=== PATIENT | female | born 1940 | race Caucasian/White ===

== ENCOUNTER 2020-08-28 20:44 | Inpatient (IN) | payer MEDICARE, OTHER ==
[2020-08-28 21:23] LABS: #Monocytes 1.3 10x3/uL (0.0-1.1); #Neutrophils 12.1 10x3/uL (1.5-8.4); %Basophils 0.3 % (0.0-2.0); %Lymphocytes 5.8 % (18.0-47.0); %Monocytes 8.9 % (0.0-10.0); %Neutrophils 84.1 % (40.0-75.0); Hemoglobin 11.1 g/dL (12.0-15.5); Mean Corpuscular HGB CONC 32.6 g/dL (32.0-36.0); Mean Corpuscular Hemoglobin 26.6 pg (27.0-33.0); Mean Corpuscular Volume 81.5 fl (81.6-98.3); Mean Platelet Volume 9.4 fl (7.4-10.4); Platelet Count 233 10x3/uL (150-450); RBC Distribution Width 15.8 % (11.5-14.5); Red Blood Cell (RBC) Count 4.17 10x6/uL (3.90-5.03); White Blood Cell (WBC) Count 14.4 10x3/uL (3.5-10.5)
[2020-08-28 21:33] LABS: Bilirubin Neg (Negative); Blood, Urine 250 (Negative); Clarity Cloudy (Clear); Glucose, Urine (Dipstick) Normal (Negative); Ketone, Urine Negative (Negative); Leukocyte 500 (Negative); Nitrite Negative (Negative); Protein, Urine (Dipstick) 30 mg/dl (Neg-Trace); Urobilinogen Normal mg/dL (Less than 2)
[2020-08-28 21:39] LABS: ALT (SGPT) 15 U/L (8-55); AST (SGOT) 28 U/L (5-34); Albumin 3.5 g/dL (3.4-4.8); Alkaline Phosphatase 56 U/L (40-110); Anion Gap 15 mmol/L (10-20); BUN (Urea Nitrogen) 28 mg/dL (9.8-20.1); Bilirubin, Total 0.7 mg/dL (0.2-1.2); Calc. Creatinine Clearance 0 mL/min (70-130); Calcium 9.2 mg/dL (7.8-10.44); Carbon Dioxide 18 mmol/L (23-31); Chloride 104 mmol/L (98-107); Globulin 2.8 g/dL (2.4-3.5); Glucose 99 mg/dL (83-110); Lipase 7 U/L (8-78); Potassium 3.1 mmol/L (3.5-5.1); Protein, Total 6.3 g/dL (5.8-8.1); Sodium 134 mmol/L (136-145)
[2020-08-28] MEDS ORDERED: Cefepime 2 GM VIAL ONE (21:39)
[2020-08-28 21:53] LABS: WBC/HPF Greater Than 50 HPF (0-3)
[2020-08-28 21:54] LABS: Bacteria/HPF 3+ HPF (None Seen); Yeast-Budding 2+ HPF (None Seen); Yeast-Hyphae 1+ HPF (None Seen)
[2020-08-28 21:55] LABS: Mucous/LPF 1+ LPF (<2+)
[2020-08-28 22:29] LABS: SARS-CoV-2 NAA Rapid Test Not Detected (NotDetected)
[2020-08-28] MEDS ORDERED: Calcium Carbonate 500 MG ChewTAB PO PRN (23:12)
[2020-08-28] MEDS ORDERED: Guaifenesin DM 100-10/5 ML UDCUP PO PRN (23:12)
[2020-08-28] MEDS ORDERED: Senokot S 8.6-50 MG TAB PO PRN (23:12)
[2020-08-29 01:20] VITALS: BMI 23.2
[2020-08-29] MEDS ORDERED: Sodium Chloride 0.9% 1,000 ML IV SCH (02:00)
[2020-08-29] MEDS ORDERED: Potassium Chloride 20 MEQ TAB PO SCH (02:00)
[2020-08-29 06:16] LABS: Anion Gap 17 mmol/L (10-20); BUN (Urea Nitrogen) 24 mg/dL (9.8-20.1); Calc. Creatinine Clearance 36 mL/min (70-130); Calcium 9.3 mg/dL (7.8-10.44); Carbon Dioxide 15 mmol/L (23-31); Chloride 110 mmol/L (98-107); Glucose 77 mg/dL (83-110); Magnesium 1.5 mg/dL (1.6-2.6); Potassium 3.3 mmol/L (3.5-5.1); Sodium 139 mmol/L (136-145)
[2020-08-29] MEDS: Acetaminophen 325 MG TAB PO PRN ×3 (06:27→20:03)
[2020-08-29] MEDS: Levothyroxine Sodium 25 MCG TAB PO SCH (06:27)
[2020-08-29] MEDS ORDERED: Vancomycin 1 GM in Premix Bag 1 BAG IVPB SCH (09:00)
[2020-08-29] MEDS: Famotidine 20 MG TAB PO SCH (09:18)
[2020-08-29] MEDS: Liothyronine Sodium 5 MCG TAB PO SCH (09:18)
[2020-08-29] MEDS: Magnesium Oxide 400 MG TAB PO SCH ×2 (09:19→20:03)
[2020-08-29] MEDS: Metamucil PACK PO SCH (09:19)
[2020-08-29] MEDS: Clopidogrel Bisulfate 75 MG TAB PO SCH (09:19)
[2020-08-29] MEDS: Gabapentin 300 MG CAP PO SCH ×2 (09:19→20:04)
[2020-08-29] MEDS: Cholecalciferol 1,000 UNITS (25 MCG) TAB PO SCH (09:19)
[2020-08-29] MEDS: Escitalopram Oxalate 10 mg Tablet PO SCH (09:20)
[2020-08-29] MEDS: Lactinex Tablet PO SCH (09:20)
[2020-08-29] MEDS: Enoxaparin Sodium 30 MG/0.3 ML SYRINGE SC SCH (09:20)
[2020-08-29] MEDS: Artificial Tear Sol 15 ML BOT EA EYE SCH ×2 (09:34→20:02)
[2020-08-29] MEDS: Stress 600 With Zinc 1 TAB PO SCH (09:45)
[2020-08-29 11:20] LABS: #Monocytes 1.1 10x3/uL (0.0-1.1); #Neutrophils 12.5 10x3/uL (1.5-8.4); %Basophils 0.2 % (0.0-2.0); %Eosinophils 0.1 % (0.0-6.0); %Lymphocytes 5.6 % (18.0-47.0); %Monocytes 7.3 % (0.0-10.0); %Neutrophils 85.9 % (40.0-75.0); Hemoglobin 10.4 g/dL (12.0-15.5); Mean Corpuscular HGB CONC 32.3 g/dL (32.0-36.0); Mean Corpuscular Hemoglobin 26.5 pg (27.0-33.0); Mean Corpuscular Volume 82.1 fl (81.6-98.3); Platelet Count 190 10x3/uL (150-450); RBC Distribution Width 15.8 % (11.5-14.5); Red Blood Cell (RBC) Count 3.92 10x6/uL (3.90-5.03); White Blood Cell (WBC) Count 14.6 10x3/uL (3.5-10.5)
[2020-08-29] MEDS: Micafungin 100 MG in Sodium Chloride 0.9% 100 ML IVPB SCH (15:00)
[2020-08-29] MEDS ORDERED: Diphenoxylate HCl/Atropine Tablet PO SCH (17:15)
[2020-08-29] MEDS: Cefepime 1 GM in Sodium Chloride 0.9% 100 ML IVPB SCH (20:01)
[2020-08-29] MEDS: Fenofibrate 48 MG TAB PO SCH (20:02)
[2020-08-29] MEDS: Atorvastatin Calcium 40 MG TAB PO SCH (20:02)
[2020-08-29] MEDS: Ondansetron PF 4 MG/2 ML Vial IVP PRN (20:18)
[2020-08-29] MEDS: Vancomycin HCl 750 MG in Sodium Chloride 0.9% 250 ML 250 ML IVPB SCH (23:13)
[2020-08-30] MEDS: Acetaminophen 325 MG TAB PO PRN ×2 (01:01→05:00)
[2020-08-30] MEDS: Levothyroxine Sodium 25 MCG TAB PO SCH (05:00)
[2020-08-30] MEDS: Magnesium Oxide 400 MG TAB PO SCH ×2 (09:00→22:40)
[2020-08-30] MEDS: Artificial Tear Sol 15 ML BOT EA EYE SCH ×2 (09:00→22:48)
[2020-08-30] MEDS: Gabapentin 300 MG CAP PO SCH ×2 (09:00→22:40)
[2020-08-30] MEDS: Liothyronine Sodium 5 MCG TAB PO SCH (09:00)
[2020-08-30] MEDS: Cholecalciferol 1,000 UNITS (25 MCG) TAB PO SCH (09:00)
[2020-08-30] MEDS: Metamucil PACK PO SCH (09:00)
[2020-08-30] MEDS: Lactinex Tablet PO SCH (09:00)
[2020-08-30] MEDS: Stress 600 With Zinc 1 TAB PO SCH (09:00)
[2020-08-30] MEDS: Clopidogrel Bisulfate 75 MG TAB PO SCH (09:00)
[2020-08-30] MEDS: Enoxaparin Sodium 30 MG/0.3 ML SYRINGE SC SCH (09:00)
[2020-08-30] MEDS: Famotidine 20 MG TAB PO SCH (09:00)
[2020-08-30] MEDS: Escitalopram Oxalate 10 mg Tablet PO SCH (09:00)
[2020-08-30] MEDS: Micafungin 100 MG in Sodium Chloride 0.9% 100 ML IVPB SCH (14:58)
[2020-08-30] MEDS: Diphenoxylate HCl/Atropine Tablet PO PRN (17:30)
[2020-08-30] MEDS: Atorvastatin Calcium 40 MG TAB PO SCH (22:41)
[2020-08-30] MEDS: Fenofibrate 48 MG TAB PO SCH (22:41)
[2020-08-30] MEDS: Cefepime 1 GM in Sodium Chloride 0.9% 100 ML IVPB SCH (22:49)
[2020-08-30] MEDS: Ondansetron PF 4 MG/2 ML Vial IVP PRN (22:59)
[2020-08-30 23:07] LABS: Vancomycin, Trough 8.3 ug/mL
[2020-08-30] MEDS: Vancomycin HCl 750 MG in Sodium Chloride 0.9% 250 ML 250 ML IVPB SCH (23:57)
[2020-08-31] MEDS: Atorvastatin Calcium 40 MG TAB PO SCH ×2 (01:34→20:44)
[2020-08-31] MEDS: Fenofibrate 48 MG TAB PO SCH ×2 (01:34→20:43)
[2020-08-31] MEDS: Magnesium Oxide 400 MG TAB PO SCH ×3 (01:34→20:43)
[2020-08-31] MEDS ORDERED: Melatonin 3 MG TAB PO SCH (01:45)
[2020-08-31 04:36] LABS: Hemoglobin 8.9 g/dL (12.0-15.5); Mean Corpuscular HGB CONC 32.5 g/dL (32.0-36.0); Mean Corpuscular Hemoglobin 26.6 pg (27.0-33.0); Platelet Count 178 10x3/uL (150-450); Red Blood Cell (RBC) Count 3.34 10x6/uL (3.90-5.03); White Blood Cell (WBC) Count 7.2 10x3/uL (3.5-10.5)
[2020-08-31 04:49] LABS: Anion Gap 14 mmol/L (10-20); BUN (Urea Nitrogen) 16 mg/dL (9.8-20.1); Calc. Creatinine Clearance 51 mL/min (70-130); Calcium 9.1 mg/dL (7.8-10.44); Carbon Dioxide 16 mmol/L (23-31); Chloride 115 mmol/L (98-107); Glucose 86 mg/dL (83-110); Sodium 142 mmol/L (136-145)
[2020-08-31 05:00] LABS: Potassium 2.6 mmol/L (3.5-5.1)
[2020-08-31] MEDS: Gabapentin 300 MG CAP PO SCH ×3 (06:02→20:43)
[2020-08-31] MEDS: Levothyroxine Sodium 25 MCG TAB PO SCH (06:02)
[2020-08-31] MEDS: Potassium Chloride 20 MEQ TAB PO SCH ×2 (06:03→09:05)
[2020-08-31 06:59] LABS: Band 12 % (5-11); Eosinophils 1 % (0-10)
[2020-08-31 07:00] LABS: Monocytes 5 % (0-10); Reactive Lymphocytes 3 % (0-10)
[2020-08-31 07:02] LABS: Anisocytosis SLIGHT = 6-15 cells (100X) (0-5/hpf); Burr Cells SLIGHT = 2-5 cells (100X) (0-1/hpf); Lymphocytes 5 % (21-51); Microcytosis MODERATE=15-30 cells (100X) (0-5/hpf); Ovalocytes SLIGHT = 2-5 cells (100X) (0-1/hpf)
[2020-08-31 07:03] LABS: Dohle Bodies SLIGHT; Toxic Granulation SLIGHT
[2020-08-31 07:04] LABS: MDiff Complete? YES; Manual Diff?? YES; Platelet Morphology Comment Appears Adequate
[2020-08-31 07:05] LABS: Neutrophil 73 % (42-75)
[2020-08-31] MEDS ORDERED: Enoxaparin Sodium 30 MG/0.3 ML SYRINGE ONE ×2 (08:56)
[2020-08-31] MEDS: Metamucil PACK PO SCH (09:05)
[2020-08-31] MEDS: Famotidine 20 MG TAB PO SCH (09:05)
[2020-08-31] MEDS: Clopidogrel Bisulfate 75 MG TAB PO SCH (09:05)
[2020-08-31] MEDS: Enoxaparin Sodium 30 MG/0.3 ML SYRINGE SC SCH (09:05)
[2020-08-31] MEDS: Cholecalciferol 1,000 UNITS (25 MCG) TAB PO SCH (09:05)
[2020-08-31] MEDS: Liothyronine Sodium 5 MCG TAB PO SCH (09:06)
[2020-08-31] MEDS: Escitalopram Oxalate 10 mg Tablet PO SCH (09:06)
[2020-08-31] MEDS: Lactinex Tablet PO SCH (09:06)
[2020-08-31] MEDS: Ondansetron PF 4 MG/2 ML Vial IVP PRN ×2 (09:06→17:35)
[2020-08-31] MEDS: Stress 600 With Zinc 1 TAB PO SCH (09:08)
[2020-08-31] MEDS: Artificial Tear Sol 15 ML BOT EA EYE SCH ×2 (09:08→22:33)
[2020-08-31] MEDS: Diphenoxylate HCl/Atropine Tablet PO PRN (12:13)
[2020-08-31] MEDS: Micafungin 100 MG in Sodium Chloride 0.9% 100 ML IVPB SCH (14:30)
[2020-08-31] MEDS: Acetaminophen 325 MG TAB PO PRN (17:23)
[2020-08-31] MEDS: Lidocaine Viscous Sol 2% 15 ml UD Cup SSP SCH (20:44)
[2020-08-31] MEDS ORDERED: Vancomycin HCl 1 GM in Sodium Chloride 0.9% 250 ML 250 ML IVPB SCH (22:00)
[2020-08-31] MEDS ORDERED: Vancomycin 1 GM in Premix Bag 1 BAG IVPB SCH (22:00)
[2020-09-01] MEDS: Diphenoxylate HCl/Atropine Tablet PO PRN ×2 (02:45→21:22)
[2020-09-01] MEDS: Ondansetron PF 4 MG/2 ML Vial IVP PRN ×3 (02:45→18:14)
[2020-09-01 04:42] LABS: #Eosinphils 0.1 10x3/uL (0.0-0.5); #Monocytes 0.9 10x3/uL (0.0-1.1); #Neutrophils 7.4 10x3/uL (1.5-8.4); %Basophils 0.2 % (0.0-2.0); %Eosinophils 1.5 % (0.0-6.0); %Lymphocytes 8.7 % (18.0-47.0); %Monocytes 9.8 % (0.0-10.0); %Neutrophils 78.5 % (40.0-75.0); Hemoglobin 9.4 g/dL (12.0-15.5); Mean Corpuscular HGB CONC 33.2 g/dL (32.0-36.0); Mean Corpuscular Hemoglobin 26.3 pg (27.0-33.0); Mean Corpuscular Volume 79.3 fl (81.6-98.3); Platelet Count 165 10x3/uL (150-450); Red Blood Cell (RBC) Count 3.57 10x6/uL (3.90-5.03); White Blood Cell (WBC) Count 9.4 10x3/uL (3.5-10.5)
[2020-09-01 04:44] LABS: Anion Gap 19 mmol/L (10-20); BUN (Urea Nitrogen) 13 mg/dL (9.8-20.1); Calc. Creatinine Clearance 58 mL/min (70-130); Calcium 9.5 mg/dL (7.8-10.44); Carbon Dioxide 12 mmol/L (23-31); Chloride 116 mmol/L (98-107); Glucose 84 mg/dL (83-110); Potassium 3.5 mmol/L (3.5-5.1); Sodium 143 mmol/L (136-145)
[2020-09-01] MEDS: Levothyroxine Sodium 25 MCG TAB PO SCH (06:12)
[2020-09-01] MEDS: Gabapentin 300 MG CAP PO SCH ×2 (08:33→21:23)
[2020-09-01] MEDS: Lactinex Tablet PO SCH (08:33)
[2020-09-01] MEDS: Clopidogrel Bisulfate 75 MG TAB PO SCH (08:33)
[2020-09-01] MEDS: Lidocaine Viscous Sol 2% 15 ml UD Cup SSP SCH ×3 (08:33→21:54)
[2020-09-01] MEDS: Cholecalciferol 1,000 UNITS (25 MCG) TAB PO SCH (08:33)
[2020-09-01] MEDS: Magnesium Oxide 400 MG TAB PO SCH ×2 (08:33→21:23)
[2020-09-01] MEDS: Escitalopram Oxalate 10 mg Tablet PO SCH (08:33)
[2020-09-01] MEDS: Famotidine 20 MG TAB PO SCH (08:33)
[2020-09-01] MEDS: Liothyronine Sodium 5 MCG TAB PO SCH (08:33)
[2020-09-01] MEDS: Artificial Tear Sol 15 ML BOT EA EYE SCH ×2 (08:34→21:58)
[2020-09-01] MEDS: Enoxaparin Sodium 30 MG/0.3 ML SYRINGE SC SCH (08:34)
[2020-09-01] MEDS: Metamucil PACK PO SCH (08:34)
[2020-09-01] MEDS: Stress 600 With Zinc 1 TAB PO SCH (08:34)
[2020-09-01] MEDS: Micafungin 100 MG in Sodium Chloride 0.9% 100 ML IVPB SCH (15:23)
[2020-09-01] MEDS ORDERED: Haloperidol Lactate 5 MG/ML VIAL SLOW IVP PRN (17:56)
[2020-09-01] MEDS: Atorvastatin Calcium 40 MG TAB PO SCH (21:22)
[2020-09-01] MEDS: Fenofibrate 48 MG TAB PO SCH (21:23)
[2020-09-01] MEDS: Linezolid 600 MG TAB PO SCH (21:23)
[2020-09-01 22:01] LABS: Vancomycin, Trough 9.5 ug/mL
[2020-09-02] MEDS: Levothyroxine Sodium 25 MCG TAB PO SCH (05:02)
[2020-09-02 05:27] LABS: #Eosinphils 0.2 10x3/uL (0.0-0.5); #Monocytes 0.8 10x3/uL (0.0-1.1); #Neutrophils 4.9 10x3/uL (1.5-8.4); %Basophils 0.3 % (0.0-2.0); %Eosinophils 3.1 % (0.0-6.0); %Lymphocytes 15.7 % (18.0-47.0); %Neutrophils 69.5 % (40.0-75.0); Hemoglobin 9.8 g/dL (12.0-15.5); Mean Corpuscular HGB CONC 33.3 g/dL (32.0-36.0); Mean Corpuscular Hemoglobin 26.6 pg (27.0-33.0); Mean Corpuscular Volume 79.7 fl (81.6-98.3); Mean Platelet Volume 9.6 fl (7.4-10.4); Platelet Count 230 10x3/uL (150-450); RBC Distribution Width 15.7 % (11.5-14.5); Red Blood Cell (RBC) Count 3.69 10x6/uL (3.90-5.03)
[2020-09-02 05:41] LABS: Anion Gap 14 mmol/L (10-20); BUN (Urea Nitrogen) 10 mg/dL (9.8-20.1); Calc. Creatinine Clearance 66 mL/min (70-130); Carbon Dioxide 20 mmol/L (23-31); Chloride 109 mmol/L (98-107); Glucose 80 mg/dL (83-110); Sodium 140 mmol/L (136-145)
[2020-09-02 05:52] LABS: Potassium 2.7 mmol/L (3.5-5.1)
[2020-09-02] MEDS ORDERED: Potassium Chloride 20 MEQ TAB PO SCH ×3 (06:15→17:00)
[2020-09-02] MEDS: Famotidine 20 MG TAB PO SCH (08:14)
[2020-09-02] MEDS: Gabapentin 300 MG CAP PO SCH ×2 (08:14→20:21)
[2020-09-02] MEDS: Magnesium Oxide 400 MG TAB PO SCH (08:14)
[2020-09-02] MEDS: Cholecalciferol 1,000 UNITS (25 MCG) TAB PO SCH (08:14)
[2020-09-02] MEDS: Ondansetron PF 4 MG/2 ML Vial IVP PRN ×2 (08:14→17:02)
[2020-09-02] MEDS: Lactinex Tablet PO SCH (08:15)
[2020-09-02] MEDS: Clopidogrel Bisulfate 75 MG TAB PO SCH (08:15)
[2020-09-02] MEDS: Liothyronine Sodium 5 MCG TAB PO SCH (08:15)
[2020-09-02] MEDS: Enoxaparin Sodium 30 MG/0.3 ML SYRINGE SC SCH (08:15)
[2020-09-02] MEDS: Lidocaine Viscous Sol 2% 15 ml UD Cup SSP SCH ×2 (08:59→20:23)
[2020-09-02] MEDS: Stress 600 With Zinc 1 TAB PO SCH (08:59)
[2020-09-02] MEDS: Artificial Tear Sol 15 ML BOT EA EYE SCH ×2 (08:59→20:20)
[2020-09-02] MEDS: Metamucil PACK PO SCH (08:59)
[2020-09-02] MEDS: Linezolid 600 MG TAB PO SCH ×2 (09:13→20:22)
[2020-09-02] MEDS: Diphenoxylate HCl/Atropine Tablet PO PRN ×2 (13:28→20:22)
[2020-09-02] MEDS ORDERED: Magnesium Oxide 400 MG TAB PO SCH (13:30)
[2020-09-02 14:29] LABS: Potassium 3.2 mmol/L (3.5-5.1)
[2020-09-02] MEDS ORDERED: Fenofibrate 48 MG TAB ONE (19:56)
[2020-09-02] MEDS: Fenofibrate 48 MG TAB PO SCH (20:21)
[2020-09-02] MEDS: Atorvastatin Calcium 40 MG TAB PO SCH (20:21)
[2020-09-03] MEDS: Levothyroxine Sodium 25 MCG TAB PO SCH (05:07)
[2020-09-03 05:08] LABS: #Eosinphils 0.2 10x3/uL (0.0-0.5); #Monocytes 0.9 10x3/uL (0.0-1.1); #Neutrophils 4.1 10x3/uL (1.5-8.4); %Basophils 0.5 % (0.0-2.0); %Eosinophils 3.7 % (0.0-6.0); %Lymphocytes 17.9 % (18.0-47.0); %Monocytes 13.7 % (0.0-10.0); %Neutrophils 63.3 % (40.0-75.0); Hemoglobin 9.9 g/dL (12.0-15.5); Mean Corpuscular HGB CONC 32.6 g/dL (32.0-36.0); Mean Corpuscular Hemoglobin 26.4 pg (27.0-33.0); Mean Corpuscular Volume 81.1 fl (81.6-98.3); Mean Platelet Volume 9.4 fl (7.4-10.4); Platelet Count 275 10x3/uL (150-450); RBC Distribution Width 15.6 % (11.5-14.5); Red Blood Cell (RBC) Count 3.75 10x6/uL (3.90-5.03); White Blood Cell (WBC) Count 6.5 10x3/uL (3.5-10.5)
[2020-09-03 05:29] LABS: Anion Gap 13 mmol/L (10-20); BUN (Urea Nitrogen) 11 mg/dL (9.8-20.1); Calc. Creatinine Clearance 56 mL/min (70-130); Calcium 8.6 mg/dL (7.8-10.44); Carbon Dioxide 19 mmol/L (23-31); Chloride 111 mmol/L (98-107); Glucose 85 mg/dL (83-110); Magnesium 1.4 mg/dL (1.6-2.6); Phosphorus 2.7 mg/dL (2.3-4.7); Potassium 3.4 mmol/L (3.5-5.1); Sodium 140 mmol/L (136-145)
[2020-09-03] MEDS: Cholecalciferol 1,000 UNITS (25 MCG) TAB PO SCH (08:52)
[2020-09-03] MEDS: Liothyronine Sodium 5 MCG TAB PO SCH (08:52)
[2020-09-03] MEDS: Clopidogrel Bisulfate 75 MG TAB PO SCH (08:53)
[2020-09-03] MEDS: Lactinex Tablet PO SCH (08:53)
[2020-09-03] MEDS: Gabapentin 300 MG CAP PO SCH (08:53)
[2020-09-03] MEDS: Famotidine 20 MG TAB PO SCH (08:53)
[2020-09-03] MEDS: Lidocaine Viscous Sol 2% 15 ml UD Cup SSP SCH (08:54)
[2020-09-03] MEDS: Linezolid 600 MG TAB PO SCH (08:54)
[2020-09-03] MEDS: Artificial Tear Sol 15 ML BOT EA EYE SCH (08:54)
[2020-09-03] MEDS: Enoxaparin Sodium 30 MG/0.3 ML SYRINGE SC SCH (08:54)
[2020-09-03] MEDS ORDERED: Magnesium 2 GM/50 ML 2 GM in Premix Bag 1 BAG IVPB SCH (09:00)
[2020-09-03] MEDS ORDERED: Potassium Chloride 20 MEQ TAB PO SCH (09:00)
[2020-09-03] MEDS ORDERED: Magnesium Oxide 400 MG TAB PO SCH (09:00)
[2020-09-03] MEDS: Stress 600 With Zinc 1 TAB PO SCH (09:12)
[2020-09-03] MEDS: Metamucil PACK PO SCH (09:12)
[2020-09-03 12:04] VITALS: BP 113/58; TEMP 98.3
== END 2020-09-03 14:00 | DRG 698 ==
LOC: CSHERS 20:44 → CSHTELE 23:12
PROVIDERS: ADMIT Student in an Organized Health Care Education/Training Program; ATTEND Family Medicine
DX: T83.518A Infection and inflammatory reaction due to other urinary catheter, initial encounter (principal); A41.9 Sepsis, unspecified organism; N17.9 Acute kidney failure, unspecified; I51.81 Takotsubo syndrome; N13.6 Pyonephrosis; E03.9 Hypothyroidism, unspecified; Z20.822 Contact with and (suspected) exposure to COVID-19; E78.5 Hyperlipidemia, unspecified; I25.10 Atherosclerotic heart disease of native coronary artery without angina pectoris; K21.9 Gastro-esophageal reflux disease without esophagitis; F03.90 Unspecified dementia, unspecified severity, without behavioral disturbance, psychotic disturbance, mood disturbance, and anxiety; M81.0 Age-related osteoporosis without current pathological fracture; Z96.643 Presence of artificial hip joint, bilateral; Z96.653 Presence of artificial knee joint, bilateral; Z90.710 Acquired absence of both cervix and uterus; Z95.0 Presence of cardiac pacemaker; Z96.612 Presence of left artificial shoulder joint; Z96.611 Presence of right artificial shoulder joint; E87.6 Hypokalemia; I12.9 Hypertensive chronic kidney disease with stage 1 through stage 4 chronic kidney disease, or unspecified chronic kidney disease; N18.2 Chronic kidney disease, stage 2 (mild); J44.9 Chronic obstructive pulmonary disease, unspecified; Z86.16 Personal history of COVID-19; D63.1 Anemia in chronic kidney disease; I25.2 Old myocardial infarction; K58.0 Irritable bowel syndrome with diarrhea; E83.42 Hypomagnesemia; I49.5 Sick sinus syndrome; M54.10 Radiculopathy, site unspecified
CPT/HCPCS: 0240U; 36415; 71045; 74177; 80048; 80053; 80202; 81003; 81015; 82565; 83605; 83690; 83735; 84100; 84520; 85025; 87040; 87077; 87086; 87149; 87186; 93005; 94760; 96365; 96367; J0692; J1630; J1650; J2248; J2405; J3370; J3475; J3490; J7050

== ENCOUNTER 2020-09-09 20:10 | Inpatient (IN) | payer MEDICARE ==
[2020-09-09 20:38] LABS: Bilirubin Neg (Negative); Blood, Urine 50 (Negative); Clarity Slightly Cloudy (Clear); Glucose, Urine (Dipstick) Normal (Negative); Ketone, Urine Negative (Negative); Leukocyte 500 (Negative); Nitrite Positive (Negative); Protein, Urine (Dipstick) 15 mg/dl (Neg-Trace); Urobilinogen Normal mg/dL (Less than 2)
[2020-09-09 20:49] LABS: Bacteria/HPF 2+ HPF (None Seen); Squamous Epithelial 0-3 HPF (0-3); WBC/HPF Greater Than 50 HPF (0-3)
[2020-09-09 20:50] LABS: Renal Epithelial 0-3 HPF (None Seen)
[2020-09-09 21:07] LABS: #Basophils 0.1 10x3/uL (0.0-0.2); #Monocytes 1.5 10x3/uL (0.0-1.1); #Neutrophils 15.7 10x3/uL (1.5-8.4); %Basophils 0.3 % (0.0-2.0); %Eosinophils 0.1 % (0.0-6.0); %Lymphocytes 4.8 % (18.0-47.0); %Monocytes 8.2 % (0.0-10.0); %Neutrophils 85.9 % (40.0-75.0); Hemoglobin 10.2 g/dL (12.0-15.5); Mean Corpuscular HGB CONC 32.2 g/dL (32.0-36.0); Mean Corpuscular Hemoglobin 26.3 pg (27.0-33.0); Mean Corpuscular Volume 81.7 fl (81.6-98.3); Mean Platelet Volume 8.5 fl (7.4-10.4); Red Blood Cell (RBC) Count 3.88 10x6/uL (3.90-5.03); White Blood Cell (WBC) Count 18.3 10x3/uL (3.5-10.5)
[2020-09-09 21:10] LABS: Platelet Count 479 10x3/uL (150-450)
[2020-09-09 21:23] LABS: ALT (SGPT) 11 U/L (8-55); AST (SGOT) 21 U/L (5-34); Albumin 3.4 g/dL (3.4-4.8); Alkaline Phosphatase 59 U/L (40-110); Anion Gap 16 mmol/L (10-20); BUN (Urea Nitrogen) 17 mg/dL (9.8-20.1); Bilirubin, Total 0.5 mg/dL (0.2-1.2); Calc. Creatinine Clearance 0 mL/min (70-130); Calcium 9.1 mg/dL (7.8-10.44); Carbon Dioxide 21 mmol/L (23-31); Chloride 101 mmol/L (98-107); Globulin 3.1 g/dL (2.4-3.5); Glucose 114 mg/dL (83-110); Lipase 40 U/L (8-78); Potassium 3.6 mmol/L (3.5-5.1); Protein, Total 6.5 g/dL (5.8-8.1); Sodium 134 mmol/L (136-145)
[2020-09-09] MEDS ORDERED: Acetaminophen 500 MG TAB ONE (21:29)
[2020-09-09] MEDS ORDERED: Calcium Carbonate 500 MG ChewTAB PO PRN (21:47)
[2020-09-09] MEDS ORDERED: Benzonatate 100 MG CAP PO PRN (21:50)
[2020-09-10 01:47] LABS: SARS-CoV-2 NAA Rapid Test Not Detected (NotDetected)
[2020-09-10] MEDS ORDERED: Sodium Chloride 0.9% 1,000 ML IV SCH (03:00)
[2020-09-10] MEDS: Acetaminophen 325 MG TAB PO PRN ×2 (05:00→20:44)
[2020-09-10] MEDS: Cefepime 1 GM in Sodium Chloride 0.9% 100 ML IVPB SCH ×2 (05:00→16:50)
[2020-09-10] MEDS ORDERED: Cefepime 1 GM VIAL ONE (05:13)
[2020-09-10] MEDS ORDERED: Acetaminophen 325 MG TAB ONE (05:14)
[2020-09-10] MEDS: Levothyroxine Sodium 25 MCG TAB PO SCH (06:01)
[2020-09-10 06:52] LABS: #Monocytes 1.6 10x3/uL (0.0-1.1); #Neutrophils 16.4 10x3/uL (1.5-8.4); %Basophils 0.2 % (0.0-2.0); %Eosinophils 0.1 % (0.0-6.0); %Lymphocytes 3.7 % (18.0-47.0); %Monocytes 8.2 % (0.0-10.0); Hemoglobin 8.5 g/dL (12.0-15.5); Mean Corpuscular HGB CONC 31.5 g/dL (32.0-36.0); Mean Corpuscular Hemoglobin 26.5 pg (27.0-33.0); Mean Corpuscular Volume 84.1 fl (81.6-98.3); Mean Platelet Volume 8.8 fl (7.4-10.4); Platelet Count 350 10x3/uL (150-450); Red Blood Cell (RBC) Count 3.21 10x6/uL (3.90-5.03); White Blood Cell (WBC) Count 18.8 10x3/uL (3.5-10.5)
[2020-09-10 07:16] LABS: ALT (SGPT) 12 U/L (8-55); AST (SGOT) 14 U/L (5-34); Albumin 2.7 g/dL (3.4-4.8); Alkaline Phosphatase 45 U/L (40-110); Anion Gap 13 mmol/L (10-20); BUN (Urea Nitrogen) 15 mg/dL (9.8-20.1); Bilirubin, Total 0.6 mg/dL (0.2-1.2); Calc. Creatinine Clearance 0 mL/min (70-130); Calcium 8.1 mg/dL (7.8-10.44); Carbon Dioxide 19 mmol/L (23-31); Chloride 109 mmol/L (98-107); Globulin 2.5 g/dL (2.4-3.5); Glucose 99 mg/dL (83-110); Potassium 3.2 mmol/L (3.5-5.1); Protein, Total 5.2 g/dL (5.8-8.1); Sodium 138 mmol/L (136-145)
[2020-09-10] MEDS ORDERED: Potassium Chloride 20 MEQ TAB PO SCH (08:15)
[2020-09-10] MEDS: Cholecalciferol 1,000 UNITS (25 MCG) TAB PO SCH (09:00)
[2020-09-10] MEDS ORDERED: Enoxaparin Sodium 40 MG/0.4 ML SYRINGE ONE (09:03)
[2020-09-10] MEDS ORDERED: Clopidogrel Bisulfate 75 MG TAB ONE (09:03)
[2020-09-10] MEDS ORDERED: Famotidine 20 MG TAB ONE (09:05)
[2020-09-10] MEDS: Clopidogrel Bisulfate 75 MG TAB PO SCH (09:39)
[2020-09-10] MEDS: Stress 600 With Zinc 1 TAB PO SCH (09:40)
[2020-09-10] MEDS: Liothyronine Sodium 5 MCG TAB PO SCH (09:40)
[2020-09-10] MEDS: Saccharomyces boulardii 250 MG CAP PO SCH (09:40)
[2020-09-10] MEDS: Polyvinyl Alcohol 1.4%/Povidone 0.6% Opth Drops EA EYE SCH ×2 (09:40→23:11)
[2020-09-10] MEDS: Metamucil PACK PO SCH (09:40)
[2020-09-10] MEDS: Enoxaparin Sodium 40 MG/0.4 ML SYRINGE SC SCH (09:42)
[2020-09-10] MEDS: Famotidine 20 MG TAB PO SCH ×2 (09:42→20:43)
[2020-09-10] MEDS ORDERED: Diphenoxylate HCl/Atropine Tablet ONE (09:49)
[2020-09-10] MEDS ORDERED: Potassium Chloride 20 MEQ TAB ONE (09:50)
[2020-09-10] MEDS: Diphenoxylate HCl/Atropine Tablet PO PRN (10:06)
[2020-09-10 12:18] LABS: Anion Gap 13 mmol/L (10-20); BUN (Urea Nitrogen) 15 mg/dL (9.8-20.1); Calc. Creatinine Clearance 0 mL/min (70-130); Calcium 8.2 mg/dL (7.8-10.44); Carbon Dioxide 20 mmol/L (23-31); Chloride 109 mmol/L (98-107); Glucose 155 mg/dL (83-110); Magnesium 1.2 mg/dL (1.6-2.6); Potassium 3.2 mmol/L (3.5-5.1); Sodium 139 mmol/L (136-145)
[2020-09-10] MEDS ORDERED: Magnesium 2 GM/50 ML 2 GM in Premix Bag 1 BAG IVPB SCH (13:30)
[2020-09-10 13:49] VITALS: BMI 22.1
[2020-09-10] MEDS: Potassium Bicarbonate/Cit Ac 20 MEQ TAB PO SCH ×2 (16:50→20:44)
[2020-09-10] MEDS: Ondansetron PF 4 MG/2 ML Vial IVP PRN (16:51)
[2020-09-10] MEDS: Fenofibrate 48 MG TAB PO SCH (20:43)
[2020-09-10] MEDS: Atorvastatin Calcium 40 MG TAB PO SCH (20:43)
[2020-09-10] MEDS: Vancomycin HCl 1 GM in Sodium Chloride 0.9% 250 ML 250 ML IVPB SCH (20:44)
[2020-09-10] MEDS ORDERED: Gabapentin 300 MG CAP PO SCH (23:15)
[2020-09-10] MEDS ORDERED: Escitalopram Oxalate 10 mg Tablet PO SCH (23:15)
[2020-09-10] MEDS ORDERED: Melatonin 3 MG TAB PO SCH (23:15)
[2020-09-11] MEDS: Cefepime 1 GM in Sodium Chloride 0.9% 100 ML IVPB SCH ×2 (03:35→17:35)
[2020-09-11 05:36] LABS: Anion Gap 13 mmol/L (10-20); BUN (Urea Nitrogen) 11 mg/dL (9.8-20.1); Calc. Creatinine Clearance 51 mL/min (70-130); Calcium 8.6 mg/dL (7.8-10.44); Carbon Dioxide 19 mmol/L (23-31); Chloride 112 mmol/L (98-107); Glucose 85 mg/dL (83-110); Magnesium 1.7 mg/dL (1.6-2.6); Potassium 3.3 mmol/L (3.5-5.1); Sodium 141 mmol/L (136-145)
[2020-09-11] MEDS: Levothyroxine Sodium 25 MCG TAB PO SCH (05:46)
[2020-09-11] MEDS ORDERED: Potassium Chloride 20 MEQ TAB PO SCH (07:45)
[2020-09-11] MEDS ORDERED: Escitalopram Oxalate 10 mg Tablet PO SCH (09:00)
[2020-09-11] MEDS: Famotidine 20 MG TAB PO SCH ×2 (09:47→20:52)
[2020-09-11] MEDS: Cholecalciferol 1,000 UNITS (25 MCG) TAB PO SCH (09:47)
[2020-09-11] MEDS: Clopidogrel Bisulfate 75 MG TAB PO SCH (09:47)
[2020-09-11] MEDS: Enoxaparin Sodium 40 MG/0.4 ML SYRINGE SC SCH (09:48)
[2020-09-11] MEDS: Vancomycin HCl 1 GM in Sodium Chloride 0.9% 250 ML 250 ML IVPB SCH ×2 (09:57→20:54)
[2020-09-11] MEDS: Saccharomyces boulardii 250 MG CAP PO SCH (11:02)
[2020-09-11] MEDS: Polyvinyl Alcohol 1.4%/Povidone 0.6% Opth Drops EA EYE SCH ×2 (11:02→20:55)
[2020-09-11] MEDS: Metamucil PACK PO SCH (11:02)
[2020-09-11] MEDS: Liothyronine Sodium 5 MCG TAB PO SCH (11:03)
[2020-09-11] MEDS: Stress 600 With Zinc 1 TAB PO SCH (11:04)
[2020-09-11] MEDS: Gabapentin 300 MG CAP PO SCH ×4 (11:13→20:52)
[2020-09-11] MEDS: Ondansetron PF 4 MG/2 ML Vial IVP PRN (17:30)
[2020-09-11 20:37] LABS: Vancomycin, Trough 20.6 ug/mL
[2020-09-11] MEDS: Atorvastatin Calcium 40 MG TAB PO SCH (20:51)
[2020-09-11] MEDS: Fenofibrate 48 MG TAB PO SCH (20:52)
[2020-09-11] MEDS: Melatonin 3 MG TAB PO SCH (20:54)
[2020-09-12] MEDS: Cefepime 1 GM in Sodium Chloride 0.9% 100 ML IVPB SCH (03:58)
[2020-09-12 05:06] LABS: #Eosinphils 0.1 10x3/uL (0.0-0.5); #Monocytes 0.8 10x3/uL (0.0-1.1); #Neutrophils 4.5 10x3/uL (1.5-8.4); %Basophils 0.5 % (0.0-2.0); %Eosinophils 1.8 % (0.0-6.0); %Monocytes 12.2 % (0.0-10.0); Hemoglobin 8.1 g/dL (12.0-15.5); Mean Corpuscular Hemoglobin 26.3 pg (27.0-33.0); Mean Corpuscular Volume 82.1 fl (81.6-98.3); Mean Platelet Volume 8.8 fl (7.4-10.4); Platelet Count 334 10x3/uL (150-450); Red Blood Cell (RBC) Count 3.08 10x6/uL (3.90-5.03); White Blood Cell (WBC) Count 6.6 10x3/uL (3.5-10.5)
[2020-09-12 05:17] LABS: Anion Gap 11 mmol/L (10-20); BUN (Urea Nitrogen) 7 mg/dL (9.8-20.1); Calc. Creatinine Clearance 56 mL/min (70-130); Calcium 8.9 mg/dL (7.8-10.44); Carbon Dioxide 22 mmol/L (23-31); Chloride 110 mmol/L (98-107); Glucose 88 mg/dL (83-110); Magnesium 1.5 mg/dL (1.6-2.6); Sodium 140 mmol/L (136-145)
[2020-09-12 05:20] LABS: Potassium 2.8 mmol/L (3.5-5.1)
[2020-09-12] MEDS: Levothyroxine Sodium 25 MCG TAB PO SCH (05:48)
[2020-09-12] MEDS: Potassium Chloride 20 MEQ TAB PO SCH ×2 (05:48→10:20)
[2020-09-12] MEDS ORDERED: Magnesium 2 GM/50 ML 2 GM in Premix Bag 1 BAG IVPB SCH (08:00)
[2020-09-12] MEDS: Clopidogrel Bisulfate 75 MG TAB PO SCH (09:42)
[2020-09-12] MEDS: Cholecalciferol 1,000 UNITS (25 MCG) TAB PO SCH (09:42)
[2020-09-12] MEDS: Gabapentin 300 MG CAP PO SCH ×4 (09:42→20:40)
[2020-09-12] MEDS: Saccharomyces boulardii 250 MG CAP PO SCH (09:42)
[2020-09-12] MEDS: Escitalopram Oxalate 10 mg Tablet PO SCH (09:42)
[2020-09-12] MEDS: Liothyronine Sodium 5 MCG TAB PO SCH (09:43)
[2020-09-12] MEDS: Famotidine 20 MG TAB PO SCH ×2 (09:43→20:40)
[2020-09-12] MEDS: Enoxaparin Sodium 40 MG/0.4 ML SYRINGE SC SCH (09:43)
[2020-09-12] MEDS: Metamucil PACK PO SCH (09:49)
[2020-09-12] MEDS: Acetaminophen 325 MG TAB PO PRN ×2 (09:50→23:29)
[2020-09-12] MEDS: Polyvinyl Alcohol 1.4%/Povidone 0.6% Opth Drops EA EYE SCH ×2 (10:15→20:41)
[2020-09-12] MEDS ORDERED: Stress 600 With Zinc 1 TAB PO SCH (11:00)
[2020-09-12] MEDS: Diphenoxylate HCl/Atropine Tablet PO PRN (12:39)
[2020-09-12 15:00] LABS: Magnesium 1.8 mg/dL (1.6-2.6); Potassium 4.3 mmol/L (3.5-5.1)
[2020-09-12] MEDS: Atorvastatin Calcium 40 MG TAB PO SCH (20:39)
[2020-09-12] MEDS: Fenofibrate 48 MG TAB PO SCH (20:40)
[2020-09-12] MEDS: Melatonin 3 MG TAB PO SCH (20:41)
[2020-09-13] MEDS: Levothyroxine Sodium 25 MCG TAB PO SCH (05:30)
[2020-09-13 05:35] LABS: #Eosinphils 0.1 10x3/uL (0.0-0.5); #Monocytes 0.6 10x3/uL (0.0-1.1); #Neutrophils 3.1 10x3/uL (1.5-8.4); %Basophils 0.6 % (0.0-2.0); %Eosinophils 2.5 % (0.0-6.0); %Lymphocytes 23.9 % (18.0-47.0); %Monocytes 12.5 % (0.0-10.0); %Neutrophils 60.1 % (40.0-75.0); Hemoglobin 8.2 g/dL (12.0-15.5); Mean Corpuscular HGB CONC 32.5 g/dL (32.0-36.0); Mean Corpuscular Hemoglobin 26.7 pg (27.0-33.0); Mean Corpuscular Volume 82.1 fl (81.6-98.3); Mean Platelet Volume 8.7 fl (7.4-10.4); Platelet Count 331 10x3/uL (150-450); RBC Distribution Width 16.1 % (11.5-14.5); Red Blood Cell (RBC) Count 3.07 10x6/uL (3.90-5.03); White Blood Cell (WBC) Count 5.1 10x3/uL (3.5-10.5)
[2020-09-13 05:47] LABS: Anion Gap 12 mmol/L (10-20); BUN (Urea Nitrogen) 8 mg/dL (9.8-20.1); Calc. Creatinine Clearance 58 mL/min (70-130); Calcium 9.1 mg/dL (7.8-10.44); Carbon Dioxide 24 mmol/L (23-31); Chloride 110 mmol/L (98-107); Glucose 84 mg/dL (83-110); Magnesium 1.6 mg/dL (1.6-2.6); Phosphorus 2.8 mg/dL (2.3-4.7); Potassium 3.5 mmol/L (3.5-5.1); Sodium 142 mmol/L (136-145)
[2020-09-13 08:19] VITALS: TEMP 98.7
[2020-09-13] MEDS: Gabapentin 300 MG CAP PO SCH ×2 (09:24→13:23)
[2020-09-13] MEDS: Cholecalciferol 1,000 UNITS (25 MCG) TAB PO SCH (09:24)
[2020-09-13] MEDS: Saccharomyces boulardii 250 MG CAP PO SCH (09:24)
[2020-09-13] MEDS: Enoxaparin Sodium 40 MG/0.4 ML SYRINGE SC SCH (09:24)
[2020-09-13] MEDS: Acetaminophen 325 MG TAB PO PRN (09:25)
[2020-09-13] MEDS: Liothyronine Sodium 5 MCG TAB PO SCH (09:25)
[2020-09-13] MEDS: Stress 600 With Zinc 1 TAB PO SCH ×2 (09:25→09:31)
[2020-09-13] MEDS: Clopidogrel Bisulfate 75 MG TAB PO SCH (09:25)
[2020-09-13] MEDS: Polyvinyl Alcohol 1.4%/Povidone 0.6% Opth Drops EA EYE SCH (09:26)
[2020-09-13] MEDS: Famotidine 20 MG TAB PO SCH (09:26)
[2020-09-13] MEDS: Escitalopram Oxalate 10 mg Tablet PO SCH (09:26)
[2020-09-13] MEDS: Metamucil PACK PO SCH (09:29)
[2020-09-13 14:39] VITALS: BP 120/57
== END 2020-09-13 15:00 | DRG 698 ==
LOC: CSHERS 20:10 → CSHERHOLD 09-10 01:56 → CSHTELE 09-10 11:59
PROVIDERS: ADMIT Student in an Organized Health Care Education/Training Program; ATTEND Family Medicine
DX: T83.518A Infection and inflammatory reaction due to other urinary catheter, initial encounter (principal); G93.41 Metabolic encephalopathy; A41.59 Other Gram-negative sepsis; N39.0 Urinary tract infection, site not specified; I51.81 Takotsubo syndrome; N17.9 Acute kidney failure, unspecified; Z20.822 Contact with and (suspected) exposure to COVID-19; E03.9 Hypothyroidism, unspecified; K21.9 Gastro-esophageal reflux disease without esophagitis; F03.90 Unspecified dementia, unspecified severity, without behavioral disturbance, psychotic disturbance, mood disturbance, and anxiety; Z96.643 Presence of artificial hip joint, bilateral; Z96.653 Presence of artificial knee joint, bilateral; Z96.612 Presence of left artificial shoulder joint; Z96.611 Presence of right artificial shoulder joint; I25.10 Atherosclerotic heart disease of native coronary artery without angina pectoris; M81.0 Age-related osteoporosis without current pathological fracture; I10 Essential (primary) hypertension; E86.0 Dehydration; Z86.16 Personal history of COVID-19; Z88.5 Allergy status to narcotic agent; Z88.0 Allergy status to penicillin; Z88.2 Allergy status to sulfonamides; Z91.018 Allergy to other foods; Z95.0 Presence of cardiac pacemaker; Z79.01 Long term (current) use of anticoagulants; Z79.890 Hormone replacement therapy; Z79.899 Other long term (current) drug therapy; I49.5 Sick sinus syndrome; I12.9 Hypertensive chronic kidney disease with stage 1 through stage 4 chronic kidney disease, or unspecified chronic kidney disease; N18.2 Chronic kidney disease, stage 2 (mild); D63.1 Anemia in chronic kidney disease; J44.9 Chronic obstructive pulmonary disease, unspecified; E83.42 Hypomagnesemia; E78.2 Mixed hyperlipidemia; M54.10 Radiculopathy, site unspecified; E87.6 Hypokalemia
CPT/HCPCS: 0240U; 36415; 71045; 80048; 80053; 80202; 81003; 81015; 83605; 83690; 83735; 83880; 84100; 84145; 84484; 85025; 87040; 87077; 87086; 87186; 93005; 94640; 94760; 96365; 96366; 96367; J0692; J1650; J1956; J2405; J3370; J3475; J3490; J7050; J7620

== ENCOUNTER 2021-10-22 09:20 | Inpatient (IN) | payer MEDICARE, OTHER ==
[2021-10-22 11:03] LABS: Bilirubin 3+ (Negative); Blood, Urine 250 (Negative); Clarity Slightly Cloudy (Clear); Glucose, Urine (Dipstick) Normal (Negative); Ketone, Urine Negative (Negative); Leukocyte 500 (Negative); Nitrite Positive (Negative); Protein, Urine (Dipstick) 100 mg/dl (Neg-Trace)
[2021-10-22 11:25] LABS: RBC/HPF Greater than 50 HPF (0-3)
[2021-10-22 11:26] LABS: Bacteria/HPF 3+ HPF (None Seen); Transitional Epithelial 0-3 HPF (None Seen); WBC/HPF Greater than 50 HPF (0-3)
[2021-10-22 11:27] LABS: Mucous/LPF 1+ LPF (<2+)
[2021-10-22] MEDS ORDERED: Cefepime 2 GM VIAL ONE (11:35)
[2021-10-22 11:49] LABS: ALT (SGPT) 31 U/L (8-55); AST (SGOT) 24 U/L (5-34); Albumin 3.3 g/dL (3.4-4.8); Alkaline Phosphatase 54 U/L (40-110); Anion Gap 13 mmol/L (10-20); BUN (Urea Nitrogen) 47 mg/dL (9.8-20.1); Bilirubin, Total 0.3 mg/dL (0.2-1.2); Calc. Creatinine Clearance 0 mL/min (70-130); Calcium 9.2 mg/dL (7.8-10.44); Carbon Dioxide 17 mmol/L (23-31); Chloride 111 mmol/L (98-107); Estimated GFR 27; Globulin 2.9 g/dL (2.4-3.5); Glucose 106 mg/dL (83-110); Potassium 3.7 mmol/L (3.5-5.1); Protein, Total 6.2 g/dL (5.8-8.1); Sodium 137 mmol/L (136-145)
[2021-10-22 12:00] LABS: #Eosinphils 0.1 10x3/uL (0.0-0.5); #Monocytes 1.4 10x3/uL (0.0-1.1); %Basophils 0.1 % (0.0-2.0); %Eosinophils 0.8 % (0.0-6.0); %Lymphocytes 8.6 % (18.0-47.0); %Neutrophils 77.9 % (40.0-75.0); Hemoglobin 7.4 g/dL (12.0-15.5); Mean Corpuscular HGB CONC 30.5 g/dL (32.0-36.0); Mean Corpuscular Volume 75.5 fl (81.6-98.3); Mean Platelet Volume 9.3 fl (7.4-10.4); Platelet Count 302 10x3/uL (150-450); RBC Distribution Width 17.7 % (11.5-14.5); Red Blood Cell (RBC) Count 3.22 10x6/uL (3.90-5.03); White Blood Cell (WBC) Count 11.5 10x3/uL (3.5-10.5)
[2021-10-22] MEDS: Vancomycin 1.5 GRAM/300 ML BAG 1.5 GM in Premix Bag 1 BAG IVPB SCH ×2 (12:00→18:45)
[2021-10-22 14:00] LABS: SARS-CoV-2 NAA Rapid Test Not Detected (NotDetected)
[2021-10-22] MEDS ORDERED: Ondansetron ODT 4 MG TAB PO PRN (14:38)
[2021-10-22] MEDS ORDERED: Lactated Ringer's 1,000 ML IV SCH (15:00)
[2021-10-22 15:34] LABS: Platelet Count 318 10x3/uL (150-450)
[2021-10-22] MEDS ORDERED: EPINEPHrine 1 MG/ML AMP IVP PRN (18:16)
[2021-10-22] MEDS: Acetaminophen 325 MG TAB PO PRN (19:00)
[2021-10-22] MEDS ORDERED: Vancomycin 1 GM in Premix Bag 1 BAG IVPB PRN (21:00)
[2021-10-23] MEDS: Acetaminophen 325 MG TAB PO PRN ×5 (01:09→20:25)
[2021-10-23 05:27] LABS: #Basophils 0.1 10x3/uL (0.0-0.2); #Eosinphils 0.1 10x3/uL (0.0-0.5); #Monocytes 1.6 10x3/uL (0.0-1.1); #Neutrophils 10.7 10x3/uL (1.5-8.4); %Basophils 0.4 % (0.0-2.0); %Eosinophils 0.7 % (0.0-6.0); %Lymphocytes 6.9 % (18.0-47.0); %Monocytes 11.8 % (0.0-10.0); %Neutrophils 79.2 % (40.0-75.0); Mean Corpuscular HGB CONC 29.4 g/dL (32.0-36.0); Mean Corpuscular Hemoglobin 23.8 pg (27.0-33.0); Mean Platelet Volume 9.6 fl (7.4-10.4); Platelet Count 288 10x3/uL (150-450); RBC Distribution Width 17.8 % (11.5-14.5); Red Blood Cell (RBC) Count 3.36 10x6/uL (3.90-5.03); White Blood Cell (WBC) Count 13.5 10x3/uL (3.5-10.5)
[2021-10-23 05:38] LABS: Magnesium 1.8 mg/dL (1.6-2.6)
[2021-10-23 05:39] LABS: Anion Gap 17 mmol/L (10-20); BUN (Urea Nitrogen) 35 mg/dL (9.8-20.1); Calc. Creatinine Clearance 30 mL/min (70-130); Calcium 8.8 mg/dL (7.8-10.44); Carbon Dioxide 12 mmol/L (23-31); Chloride 118 mmol/L (98-107); Estimated GFR 34; Glucose 82 mg/dL (83-110); Potassium 3.4 mmol/L (3.5-5.1); Sodium 144 mmol/L (136-145)
[2021-10-23] MEDS ORDERED: Polyvinyl Alcohol 1.4%/Povidone 0.6% Opth Drops EA EYE PRN (08:59)
[2021-10-23] MEDS ORDERED: Potassium Chloride 20 MEQ TAB PO SCH (09:00)
[2021-10-23] MEDS ORDERED: Ondansetron ODT 4 MG TAB PO PRN (09:02)
[2021-10-23] MEDS: Ondansetron PF 4 MG/2 ML Vial IVP PRN ×2 (09:03→13:29)
[2021-10-23] MEDS ORDERED: Cefepime 1 GM in Sodium Chloride 0.9% 100 ML IVPB SCH (12:00)
[2021-10-23 12:46] LABS: Vancomycin, Random 12.5 ug/mL (See Comment)
[2021-10-23] MEDS: Metamucil PACK PO SCH (13:24)
[2021-10-23] MEDS: Furosemide 20 MG TAB PO SCH ×2 (13:25)
[2021-10-23] MEDS: Escitalopram Oxalate 20 mg Tablet PO SCH (13:26)
[2021-10-23] MEDS: Clopidogrel Bisulfate 75 MG TAB PO SCH (13:26)
[2021-10-23] MEDS: Cholecalciferol 1,000 UNITS (25 MCG) TAB PO SCH (13:26)
[2021-10-23] MEDS: Liothyronine Sodium 5 MCG TAB PO SCH (13:26)
[2021-10-23] MEDS: Saccharomyces boulardii 250 MG CAP PO SCH (13:27)
[2021-10-23] MEDS: Gabapentin 300 MG CAP PO SCH ×4 (13:28→20:23)
[2021-10-23] MEDS ORDERED: Vancomycin HCl 750 MG in Sodium Chloride 0.9% 250 ML 250 ML IVPB SCH (14:00)
[2021-10-23] MEDS ORDERED: Potassium Chloride 20 MEQ in Premix Bag 1 BAG IVPB SCH (16:00)
[2021-10-23] MEDS: Potassium Chloride 20 MEQ TAB PO SCH (16:02)
[2021-10-23] MEDS: Methocarbamol 500 MG TAB PO SCH (20:21)
[2021-10-23] MEDS: Atorvastatin Calcium 40 MG TAB PO SCH (20:22)
[2021-10-23] MEDS: Fenofibrate 48 MG TAB PO SCH (20:23)
[2021-10-24 04:31] LABS: #Eosinphils 0.4 10x3/uL (0.0-0.5); #Monocytes 1.3 10x3/uL (0.0-1.1); #Neutrophils 8.2 10x3/uL (1.5-8.4); %Basophils 0.4 % (0.0-2.0); %Eosinophils 3.2 % (0.0-6.0); %Lymphocytes 9.3 % (18.0-47.0); %Monocytes 11.5 % (0.0-10.0); %Neutrophils 73.3 % (40.0-75.0); Hemoglobin 8.2 g/dL (12.0-15.5); Mean Corpuscular HGB CONC 31.4 g/dL (32.0-36.0); Mean Corpuscular Hemoglobin 23.4 pg (27.0-33.0); Mean Corpuscular Volume 74.6 fl (81.6-98.3); Mean Platelet Volume 9.8 fl (7.4-10.4); Platelet Count 307 10x3/uL (150-450); White Blood Cell (WBC) Count 11.2 10x3/uL (3.5-10.5)
[2021-10-24 04:47] LABS: Anion Gap 15 mmol/L (10-20); BUN (Urea Nitrogen) 28 mg/dL (9.8-20.1); Calc. Creatinine Clearance 39 mL/min (70-130); Calcium 8.9 mg/dL (7.8-10.44); Carbon Dioxide 16 mmol/L (23-31); Chloride 116 mmol/L (98-107); Estimated GFR 47; Glucose 98 mg/dL (83-110); Potassium 3.3 mmol/L (3.5-5.1); Sodium 144 mmol/L (136-145)
[2021-10-24] MEDS: Levothyroxine Sodium 25 MCG TAB PO SCH (06:25)
[2021-10-24] MEDS: Ondansetron PF 4 MG/2 ML Vial IVP PRN (10:45)
[2021-10-24] MEDS: Cholecalciferol 1,000 UNITS (25 MCG) TAB PO SCH (10:45)
[2021-10-24] MEDS: Saccharomyces boulardii 250 MG CAP PO SCH (10:46)
[2021-10-24] MEDS: Liothyronine Sodium 5 MCG TAB PO SCH (10:46)
[2021-10-24] MEDS: Furosemide 20 MG TAB PO SCH ×2 (10:46→16:52)
[2021-10-24] MEDS: Clopidogrel Bisulfate 75 MG TAB PO SCH (10:46)
[2021-10-24] MEDS: Gabapentin 300 MG CAP PO SCH ×4 (10:46→21:18)
[2021-10-24] MEDS: Potassium Chloride 20 MEQ TAB PO SCH ×2 (10:47→16:52)
[2021-10-24] MEDS: Stress 600 With Zinc 1 TAB PO SCH (10:47)
[2021-10-24] MEDS: Cefepime 1 GM in Sodium Chloride 0.9% 100 ML IVPB SCH ×2 (10:48→21:17)
[2021-10-24] MEDS: Escitalopram Oxalate 20 mg Tablet PO SCH (10:48)
[2021-10-24] MEDS: Methocarbamol 500 MG TAB PO SCH ×2 (10:49→21:20)
[2021-10-24] MEDS: Metamucil PACK PO SCH (10:49)
[2021-10-24] MEDS ORDERED: Acetaminophen 650 MG Suppository PR PRN (13:19)
[2021-10-24] MEDS ORDERED: Acetaminophen 325 MG TAB PO PRN (13:26)
[2021-10-24] MEDS: CALCIUM POLYCARBOPHIL 500 MG PO SCH (13:46)
[2021-10-24 15:39] LABS: Vancomycin, Random 14.1 ug/mL (See Comment)
[2021-10-24] MEDS: Acetaminophen 500 MG TAB PO PRN ×2 (16:52→21:19)
[2021-10-24] MEDS ORDERED: Vancomycin HCl 500 MG in Sodium Chloride 0.9% 100 ML IVPB SCH (17:00)
[2021-10-24] MEDS: Atorvastatin Calcium 40 MG TAB PO SCH (21:19)
[2021-10-24] MEDS: Fenofibrate 48 MG TAB PO SCH (21:19)
[2021-10-24 22:27] VITALS: BMI 24.8
[2021-10-24] MEDS: Melatonin 3 MG TAB PO PRN (22:53)
[2021-10-25 04:10] LABS: #Basophils 0.1 10x3/uL (0.0-0.2); #Eosinphils 0.5 10x3/uL (0.0-0.5); #Monocytes 0.9 10x3/uL (0.0-1.1); #Neutrophils 5.5 10x3/uL (1.5-8.4); %Basophils 0.6 % (0.0-2.0); %Eosinophils 5.8 % (0.0-6.0); %Lymphocytes 16.5 % (18.0-47.0); %Monocytes 10.8 % (0.0-10.0); %Neutrophils 62.9 % (40.0-75.0); Mean Corpuscular HGB CONC 30.7 g/dL (32.0-36.0); Mean Corpuscular Hemoglobin 23.1 pg (27.0-33.0); Mean Corpuscular Volume 75.4 fl (81.6-98.3); Mean Platelet Volume 9.3 fl (7.4-10.4); Platelet Count 384 10x3/uL (150-450); Red Blood Cell (RBC) Count 3.46 10x6/uL (3.90-5.03); White Blood Cell (WBC) Count 8.7 10x3/uL (3.5-10.5)
[2021-10-25 04:36] LABS: Anion Gap 15 mmol/L (10-20); BUN (Urea Nitrogen) 25 mg/dL (9.8-20.1); Calc. Creatinine Clearance 40 mL/min (70-130); Calcium 9.1 mg/dL (7.8-10.44); Carbon Dioxide 20 mmol/L (23-31); Chloride 111 mmol/L (98-107); Estimated GFR 48; Glucose 99 mg/dL (83-110); Sodium 143 mmol/L (136-145)
[2021-10-25 04:56] LABS: Potassium 2.9 mmol/L (3.5-5.1)
[2021-10-25] MEDS ORDERED: Potassium Chloride 20 MEQ TAB PO SCH (05:30)
[2021-10-25] MEDS: Levothyroxine Sodium 25 MCG TAB PO SCH (05:43)
[2021-10-25] MEDS ORDERED: Electrolyte Replacement Protocol 1 EACH FS SCH (07:15)
[2021-10-25] MEDS ORDERED: Magnesium 2 GM/50 ML(in water) 2 GM in Premix Bag 1 BAG IVPB SCH ×2 (08:15→10:45)
[2021-10-25] MEDS: Saccharomyces boulardii 250 MG CAP PO SCH (09:00)
[2021-10-25] MEDS: Cefepime 1 GM in Sodium Chloride 0.9% 100 ML IVPB SCH ×2 (09:07→20:17)
[2021-10-25] MEDS: Methocarbamol 500 MG TAB PO SCH ×2 (09:07→20:18)
[2021-10-25] MEDS: Gabapentin 300 MG CAP PO SCH ×4 (09:08→20:17)
[2021-10-25] MEDS: Liothyronine Sodium 5 MCG TAB PO SCH (09:09)
[2021-10-25] MEDS: Furosemide 20 MG TAB PO SCH ×2 (09:09→13:29)
[2021-10-25] MEDS: Cholecalciferol 1,000 UNITS (25 MCG) TAB PO SCH (09:10)
[2021-10-25] MEDS: Escitalopram Oxalate 20 mg Tablet PO SCH (09:10)
[2021-10-25] MEDS: Clopidogrel Bisulfate 75 MG TAB PO SCH (09:10)
[2021-10-25] MEDS: Potassium Chloride 20 MEQ TAB PO SCH ×4 (09:10→17:16)
[2021-10-25] MEDS: Stress 600 With Zinc 1 TAB PO SCH (09:13)
[2021-10-25] MEDS: Acetaminophen 500 MG TAB PO PRN (09:22)
[2021-10-25] MEDS: Metamucil PACK PO SCH (09:30)
[2021-10-25] MEDS ORDERED: Potassium Chloride 20 MEQ in Lactated Ringer's 1,000 ML IV SCH (14:00)
[2021-10-25] MEDS: Atorvastatin Calcium 40 MG TAB PO SCH (20:17)
[2021-10-25] MEDS: Fenofibrate 48 MG TAB PO SCH (20:17)
[2021-10-26 05:31] LABS: Iron 30 ug/dL (50-170); Iron Binding Capacity, Total 350 mcg/dL (265-497)
[2021-10-26] MEDS: Levothyroxine Sodium 25 MCG TAB PO SCH (05:44)
[2021-10-26 05:48] LABS: Anion Gap 15 mmol/L (10-20); BUN (Urea Nitrogen) 25 mg/dL (9.8-20.1); Calc. Creatinine Clearance 46 mL/min (70-130); Calcium 9.3 mg/dL (7.8-10.44); Carbon Dioxide 19 mmol/L (23-31); Chloride 110 mmol/L (98-107); Estimated GFR 57; Glucose 96 mg/dL (83-110); Iron 30 ug/dL (50-170); Iron Binding Capacity, Total 341 mcg/dL (265-497); Magnesium 2.4 mg/dL (1.6-2.6); Potassium 4.6 mmol/L (3.5-5.1); Sodium 139 mmol/L (136-145)
[2021-10-26] MEDS: Cefepime 1 GM in Sodium Chloride 0.9% 100 ML IVPB SCH ×2 (09:11→21:33)
[2021-10-26] MEDS: Liothyronine Sodium 5 MCG TAB PO SCH (09:11)
[2021-10-26] MEDS: Potassium Chloride 20 MEQ TAB PO SCH ×2 (09:11→17:41)
[2021-10-26] MEDS: Metamucil PACK PO SCH (09:12)
[2021-10-26] MEDS: Gabapentin 300 MG CAP PO SCH ×4 (09:12→21:33)
[2021-10-26] MEDS: Furosemide 20 MG TAB PO SCH ×2 (09:12→13:47)
[2021-10-26] MEDS: Cholecalciferol 1,000 UNITS (25 MCG) TAB PO SCH (09:12)
[2021-10-26] MEDS: Clopidogrel Bisulfate 75 MG TAB PO SCH (09:12)
[2021-10-26] MEDS: Saccharomyces boulardii 250 MG CAP PO SCH (09:12)
[2021-10-26] MEDS: Stress 600 With Zinc 1 TAB PO SCH (09:13)
[2021-10-26] MEDS: Methocarbamol 500 MG TAB PO SCH ×2 (09:17→21:41)
[2021-10-26] MEDS: Escitalopram Oxalate 20 mg Tablet PO SCH (09:17)
[2021-10-26] MEDS: Acetaminophen 500 MG TAB PO PRN ×2 (10:51→21:39)
[2021-10-26] MEDS: Atorvastatin Calcium 40 MG TAB PO SCH (21:33)
[2021-10-26] MEDS: Melatonin 3 MG TAB PO PRN (21:40)
[2021-10-26] MEDS: Fenofibrate 48 MG TAB PO SCH (22:09)
[2021-10-27 04:54] LABS: Anion Gap 15 mmol/L (10-20); BUN (Urea Nitrogen) 34 mg/dL (9.8-20.1); Calc. Creatinine Clearance 38 mL/min (70-130); Calcium 9.3 mg/dL (7.8-10.44); Carbon Dioxide 18 mmol/L (23-31); Chloride 107 mmol/L (98-107); Estimated GFR 46; Glucose 114 mg/dL (83-110); Potassium 4.3 mmol/L (3.5-5.1); Sodium 136 mmol/L (136-145)
[2021-10-27] MEDS: Levothyroxine Sodium 25 MCG TAB PO SCH (06:26)
[2021-10-27] MEDS: Cefepime 1 GM in Sodium Chloride 0.9% 100 ML IVPB SCH ×2 (08:06→20:35)
[2021-10-27] MEDS: Liothyronine Sodium 5 MCG TAB PO SCH (08:07)
[2021-10-27] MEDS: Gabapentin 300 MG CAP PO SCH ×4 (08:07→20:37)
[2021-10-27] MEDS: Potassium Chloride 20 MEQ TAB PO SCH ×2 (08:08→17:41)
[2021-10-27] MEDS: Ferrous Sulfate 325 MG TAB PO SCH (08:08)
[2021-10-27] MEDS: Furosemide 20 MG TAB PO SCH ×2 (08:09→13:24)
[2021-10-27] MEDS: Cholecalciferol 1,000 UNITS (25 MCG) TAB PO SCH (08:09)
[2021-10-27] MEDS: Stress 600 With Zinc 1 TAB PO SCH (08:09)
[2021-10-27] MEDS: Saccharomyces boulardii 250 MG CAP PO SCH (08:09)
[2021-10-27] MEDS: Clopidogrel Bisulfate 75 MG TAB PO SCH (08:11)
[2021-10-27] MEDS: Metamucil PACK PO SCH (08:16)
[2021-10-27] MEDS: Methocarbamol 500 MG TAB PO SCH ×2 (10:35→20:36)
[2021-10-27] MEDS: Escitalopram Oxalate 20 mg Tablet PO SCH (10:35)
[2021-10-27] MEDS ORDERED: Lidocaine 1% PF 5 ML VIAL ONE (11:15)
[2021-10-27] MEDS ORDERED: Sodium Bicarbonate 2.5 MEQ/5 ML VIAL ONE (11:15)
[2021-10-27] MEDS: Acetaminophen 500 MG TAB PO PRN (20:37)
[2021-10-27] MEDS: Melatonin 3 MG TAB PO PRN (20:38)
[2021-10-27] MEDS: Atorvastatin Calcium 40 MG TAB PO SCH (20:38)
[2021-10-27] MEDS: Fenofibrate 48 MG TAB PO SCH (20:38)
[2021-10-28] MEDS: Levothyroxine Sodium 25 MCG TAB PO SCH (06:16)
[2021-10-28] MEDS: Ferrous Sulfate 325 MG TAB PO SCH (09:36)
[2021-10-28] MEDS: Gabapentin 300 MG CAP PO SCH ×2 (09:37→13:48)
[2021-10-28] MEDS: Saccharomyces boulardii 250 MG CAP PO SCH (09:37)
[2021-10-28] MEDS: Liothyronine Sodium 5 MCG TAB PO SCH (09:37)
[2021-10-28] MEDS: Stress 600 With Zinc 1 TAB PO SCH (09:39)
[2021-10-28] MEDS: Furosemide 20 MG TAB PO SCH ×2 (09:39→13:49)
[2021-10-28] MEDS: Cefepime 1 GM in Sodium Chloride 0.9% 100 ML IVPB SCH (09:47)
[2021-10-28] MEDS: Acetaminophen 500 MG TAB PO PRN (09:48)
[2021-10-28] MEDS: Methocarbamol 500 MG TAB PO SCH (09:51)
[2021-10-28] MEDS: Clopidogrel Bisulfate 75 MG TAB PO SCH (10:08)
[2021-10-28] MEDS: Potassium Chloride 20 MEQ TAB PO SCH (10:08)
[2021-10-28] MEDS: Cholecalciferol 1,000 UNITS (25 MCG) TAB PO SCH (10:08)
[2021-10-28] MEDS: Escitalopram Oxalate 20 mg Tablet PO SCH (10:09)
[2021-10-28] MEDS: Metamucil PACK PO SCH (10:39)
[2021-10-28 13:16] VITALS: BP 106/56; TEMP 96.8
== END 2021-10-28 15:03 | DRG 698 ==
LOC: CSHERS 09:20 → CSHTELE 15:15
PROVIDERS: ADMIT Family Medicine; ATTEND Family Medicine
PROC: 0T2BX0Z Change Drainage Device in Bladder, External Approach (ICD-10-PCS; 2021-10-22)
PROC: 30233N1 Transfusion of Nonautologous Red Blood Cells into Peripheral Vein, Percutaneous Approach (ICD-10-PCS; 2021-10-22)
PROC: 05H633Z Insertion of Infusion Device into Left Subclavian Vein, Percutaneous Approach (ICD-10-PCS; principal; 2021-10-27)
PROC: B547ZZA Ultrasonography of Left Subclavian Vein, Guidance (ICD-10-PCS; 2021-10-27)
DX: T83.511A Infection and inflammatory reaction due to indwelling urethral catheter, initial encounter (principal); A41.59 Other Gram-negative sepsis; I51.81 Takotsubo syndrome; N17.9 Acute kidney failure, unspecified; Z16.24 Resistance to multiple antibiotics; F03.90 Unspecified dementia, unspecified severity, without behavioral disturbance, psychotic disturbance, mood disturbance, and anxiety; I12.9 Hypertensive chronic kidney disease with stage 1 through stage 4 chronic kidney disease, or unspecified chronic kidney disease; E78.5 Hyperlipidemia, unspecified; E03.9 Hypothyroidism, unspecified; I49.5 Sick sinus syndrome; J44.9 Chronic obstructive pulmonary disease, unspecified; Z96.643 Presence of artificial hip joint, bilateral; D63.1 Anemia in chronic kidney disease; M81.0 Age-related osteoporosis without current pathological fracture; Z96.653 Presence of artificial knee joint, bilateral; Z96.612 Presence of left artificial shoulder joint; Z20.822 Contact with and (suspected) exposure to COVID-19; Z96.611 Presence of right artificial shoulder joint; I48.91 Unspecified atrial fibrillation; E87.6 Hypokalemia; N39.0 Urinary tract infection, site not specified; N18.2 Chronic kidney disease, stage 2 (mild); Z88.2 Allergy status to sulfonamides; Z88.0 Allergy status to penicillin; Z88.8 Allergy status to other drugs, medicaments and biological substances; Z88.5 Allergy status to narcotic agent; Z88.1 Allergy status to other antibiotic agents; Z98.890 Other specified postprocedural states; I25.2 Old myocardial infarction; Z95.0 Presence of cardiac pacemaker; Z90.49 Acquired absence of other specified parts of digestive tract; Z91.018 Allergy to other foods; Z79.899 Other long term (current) drug therapy
CPT/HCPCS: 36415; 36416; 36430; 36568; 71045; 76770; 80048; 80053; 80202; 81003; 81015; 82607; 82746; 83540; 83550; 83605; 83735; 85025; 86850; 86900; 86901; 86922; 87040; 87077; 87086; 87149; 87186; 94760; 96365; 96366; 96367; C1751; J0692; J2405; J3370; J3475; J3480; J3490; J7050; J7120; P9016; Q0162; U0002

== ENCOUNTER 2022-01-24 07:15 | Inpatient (IN) | payer MEDICARE, OTHER ==
[2022-01-24 07:34] LABS: Bilirubin Neg (Negative); Blood, Urine 150 (Negative); Glucose, Urine (Dipstick) Normal (Negative); Ketone, Urine Negative (Negative); Leukocyte 500 (Negative); Nitrite Negative (Negative); Protein, Urine (Dipstick) 100 mg/dl (Neg-Trace); Specific Gravity, Urine 1.005 (1.005-1.030); Urobilinogen Normal mg/dL (Less than 2)
[2022-01-24] MEDS ORDERED: Piperacillin/Tazobactam 4.5 GM VIAL ONE (07:35)
[2022-01-24 07:40] LABS: Clarity Slightly Cloudy (Clear)
[2022-01-24 07:53] LABS: RBC/HPF 21-50 HPF (0-3); Squamous Epithelial 0-3 HPF (0-3); WBC/HPF 21-50 HPF (0-3)
[2022-01-24 07:54] LABS: Renal Epithelial 0-3 HPF (None Seen)
[2022-01-24 07:55] LABS: Bacteria/HPF 3+ HPF (None Seen)
[2022-01-24 07:59] LABS: #Monocytes 1.2 10x3/uL (0.0-1.1); #Neutrophils 15.5 10x3/uL (1.5-8.4); %Basophils 0.2 % (0.0-2.0); %Eosinophils 0.2 % (0.0-6.0); %Lymphocytes 3.4 % (18.0-47.0); %Monocytes 6.8 % (0.0-10.0); %Neutrophils 88.7 % (40.0-75.0); Hemoglobin 11.4 g/dL (12.0-15.5); Mean Corpuscular HGB CONC 31.7 g/dL (32.0-36.0); Mean Corpuscular Hemoglobin 26.8 pg (27.0-33.0); Mean Corpuscular Volume 84.5 fl (81.6-98.3); Mean Platelet Volume 9.1 fl (7.4-10.4); Platelet Count 222 10x3/uL (150-450); RBC Distribution Width 17.2 % (11.5-14.5); Red Blood Cell (RBC) Count 4.26 10x6/uL (3.90-5.03); White Blood Cell (WBC) Count 17.4 10x3/uL (3.5-10.5)
[2022-01-24 08:19] LABS: ALT (SGPT) 12 U/L (8-55); AST (SGOT) 22 U/L (5-34); Albumin 3.8 g/dL (3.4-4.8); Alkaline Phosphatase 45 U/L (40-110); Anion Gap 17 mmol/L (10-20); BUN (Urea Nitrogen) 44 mg/dL (9.8-20.1); Bilirubin, Total 0.4 mg/dL (0.2-1.2); Calc. Creatinine Clearance 0 mL/min (70-130); Calcium 9.1 mg/dL (7.8-10.44); Carbon Dioxide 14 mmol/L (23-31); Chloride 111 mmol/L (98-107); Estimated GFR 31; Globulin 2.7 g/dL (2.4-3.5); Glucose 97 mg/dL (83-110); Potassium 3.5 mmol/L (3.5-5.1); Protein, Total 6.5 g/dL (5.8-8.1); Sodium 138 mmol/L (136-145)
[2022-01-24 08:37] LABS: SARS-CoV-2 NAA Rapid Test Not Detected (NotDetected)
[2022-01-24 11:45] LABS: Phosphorus 2.2 mg/dL (2.3-4.7)
[2022-01-24 11:47] LABS: Magnesium 1.8 mg/dL (1.6-2.6)
[2022-01-24] MEDS ORDERED: Iopamidol 300 61% 100 ML VIAL FS ONE (13:21)
[2022-01-24] MEDS ORDERED: Cefepime 2 GM in Sodium Chloride 0.9% 100 ML IVPB SCH (14:00)
[2022-01-24] MEDS ORDERED: Vancomycin DOSE BY LEVEL IVPB PRN (14:00)
[2022-01-24] MEDS ORDERED: FLU VACC QS2022-23(65YR UP)/PF 240 MCG/0.7 ML SYRINGE IM ONE (14:00)
[2022-01-24] MEDS ORDERED: Cefepime 1 GM in Sodium Chloride 0.9% 100 ML IVPB SCH (15:15)
[2022-01-24] MEDS: PHOS-NAK 1 PKT PACK PO SCH ×2 (15:20→22:21)
[2022-01-24] MEDS: Acetaminophen 325 MG TAB PO PRN ×2 (15:21→23:38)
[2022-01-24] MEDS ORDERED: Potassium Chloride 20 MEQ TAB PO SCH (17:00)
[2022-01-24 17:09] LABS: Actual Bicarbonate (HCO3v) 15 mEq/L (22-28); Base Excess -9.9 mEq/L (-2.0 to +3.0); Chloride (VBG) 116 mmol/L (98-106); Hemoglobin (Hb) 12.4 g/dL (11.7-16.1); Potassium (VBG) 3.86 mmol/L (3.70-5.30); Puncture Site Other Site; RapidComm Collect By LAB.CB1; Sodium 139.2 mmol/L (133-146); pH (venous) 7.32 (7.32-7.43)
[2022-01-24] MEDS: Acetaminophen 650 MG Suppository PR PRN (17:47)
[2022-01-24] MEDS ORDERED: Famotidine 20 MG TAB PO SCH (21:00)
[2022-01-24] MEDS: Fenofibrate 48 MG TAB PO SCH (22:22)
[2022-01-24] MEDS: Atorvastatin Calcium 40 MG TAB PO SCH (22:22)
[2022-01-24] MEDS: Melatonin 3 MG TAB PO PRN (23:39)
[2022-01-25] MEDS ORDERED: Cefepime 1 GM in Sodium Chloride 0.9% 100 ML IVPB SCH (02:00)
[2022-01-25 05:33] LABS: ALT (SGPT) 17 U/L (8-55); AST (SGOT) 29 U/L (5-34); Albumin 3.4 g/dL (3.4-4.8); Alkaline Phosphatase 42 U/L (40-110); Anion Gap 15 mmol/L (10-20); BUN (Urea Nitrogen) 40 mg/dL (9.8-20.1); Bilirubin, Total 0.6 mg/dL (0.2-1.2); Calc. Creatinine Clearance 28 mL/min (70-130); Calcium 8.6 mg/dL (7.8-10.44); Carbon Dioxide 14 mmol/L (23-31); Chloride 122 mmol/L (98-107); Estimated GFR 24; Glucose 92 mg/dL (83-110); Hemoglobin 10.4 g/dL (12.0-15.5); Mean Corpuscular HGB CONC 30.8 g/dL (32.0-36.0); Mean Corpuscular Hemoglobin 27.2 pg (27.0-33.0); Mean Corpuscular Volume 88.5 fl (81.6-98.3); Mean Platelet Volume 9.4 fl (7.4-10.4); Phosphorus 4.1 mg/dL (2.3-4.7); Platelet Count 188 10x3/uL (150-450); Potassium 4.2 mmol/L (3.5-5.1); Protein, Total 6.4 g/dL (5.8-8.1); RBC Distribution Width 17.6 % (11.5-14.5); Red Blood Cell (RBC) Count 3.82 10x6/uL (3.90-5.03); Sodium 147 mmol/L (136-145)
[2022-01-25 05:38] LABS: MDiff Complete? YES
[2022-01-25 05:42] LABS: Band 21 % (5-11); Lymphocytes 6 % (21-51); Metamyelocyte 1 % (0-0); Monocytes 5 % (0-10); Neutrophil 67 % (42-75)
[2022-01-25 05:43] LABS: Platelet Morphology Comment Appears Adequate; RBC Morphology Normal
[2022-01-25] MEDS: Acetaminophen 325 MG TAB PO PRN (06:10)
[2022-01-25] MEDS: Levothyroxine Sodium 25 MCG TAB PO SCH (06:10)
[2022-01-25 09:19] LABS: Vancomycin, Random 8.3 ug/mL (See Comment)
[2022-01-25] MEDS ORDERED: Vancomycin HCl 1 GM in Sodium Chloride 0.9% 250 ML 250 ML IVPB SCH (09:45)
[2022-01-25] MEDS ORDERED: Meropenem 1 GM in Sodium Chloride 0.9% 100 ML IVPB SCH (10:30)
[2022-01-25] MEDS ORDERED: Ketorolac Tromethamine 30 MG/ML VIAL IVP SCH (10:30)
[2022-01-25] MEDS: Saccharomyces boulardii 250 MG CAP PO SCH (10:33)
[2022-01-25] MEDS: PHOS-NAK 1 PKT PACK PO SCH (10:33)
[2022-01-25] MEDS: Escitalopram Oxalate 10 mg Tablet PO SCH (10:33)
[2022-01-25] MEDS: Clopidogrel Bisulfate 75 MG TAB PO SCH (10:34)
[2022-01-25] MEDS: Ferrous Sulfate 325 MG TAB PO SCH (10:34)
[2022-01-25] MEDS ORDERED: Meropenem 1 GM VIAL ONE ×2 (10:47→10:48)
[2022-01-25] MEDS: clonazePAM 0.5 MG TAB PO PRN ×2 (17:08→21:43)
[2022-01-25] MEDS: Meropenem 500 MG in Sodium Chloride 0.9% 100 ML IVPB SCH (20:25)
[2022-01-25] MEDS ORDERED: MELATONIN 5 MG PO SCH (21:00)
[2022-01-25] MEDS ORDERED: Famotidine 20 MG TAB PO SCH (21:00)
[2022-01-25] MEDS: Fenofibrate 48 MG TAB PO SCH (21:43)
[2022-01-25] MEDS: Oxybutynin 5 MG TAB PO SCH (21:43)
[2022-01-25] MEDS: Atorvastatin Calcium 40 MG TAB PO SCH (21:43)
[2022-01-26] MEDS ORDERED: Fentanyl 100 MCG/2 ML VIAL SLOW IVP SCH (02:45)
[2022-01-26] MEDS: Meropenem 500 MG in Sodium Chloride 0.9% 100 ML IVPB SCH ×2 (06:13→18:46)
[2022-01-26] MEDS: Levothyroxine Sodium 25 MCG TAB PO SCH (06:16)
[2022-01-26] MEDS: clonazePAM 0.5 MG TAB PO PRN (06:16)
[2022-01-26] MEDS: Oxybutynin 5 MG TAB PO SCH ×2 (09:00→22:34)
[2022-01-26] MEDS: Clopidogrel Bisulfate 75 MG TAB PO SCH (09:00)
[2022-01-26] MEDS ORDERED: Ketorolac Tromethamine 30 MG/ML VIAL IVP PRN (09:48)
[2022-01-26] MEDS: Lorazepam 2 MG/ML VIAL SLOW IVP PRN ×2 (11:01→16:43)
[2022-01-26 11:31] LABS: Prothrombin Time 10.5 sec (9.5-12.1)
[2022-01-26 11:32] LABS: Hemoglobin 8.8 g/dL (12.0-15.5); Mean Corpuscular HGB CONC 30.3 g/dL (32.0-36.0); Mean Corpuscular Hemoglobin 26.7 pg (27.0-33.0); Mean Corpuscular Volume 88.1 fl (81.6-98.3); Mean Platelet Volume 9.7 fl (7.4-10.4); Platelet Count 187 10x3/uL (150-450); RBC Distribution Width 17.5 % (11.5-14.5); Red Blood Cell (RBC) Count 3.29 10x6/uL (3.90-5.03)
[2022-01-26 11:37] LABS: Anion Gap 17 mmol/L (10-20); BUN (Urea Nitrogen) 39 mg/dL (9.8-20.1); Calc. Creatinine Clearance 25 mL/min (70-130); Carbon Dioxide 13 mmol/L (23-31); Chloride 122 mmol/L (98-107); Estimated GFR 21; Glucose 114 mg/dL (83-110); Potassium 3.8 mmol/L (3.5-5.1); Sodium 148 mmol/L (136-145)
[2022-01-26 12:07] LABS: MDiff Complete? YES
[2022-01-26 12:09] LABS: Band 6 % (5-11); Lymphocytes 3 % (21-51); Monocytes 3 % (0-10); Neutrophil 88 % (42-75)
[2022-01-26 12:10] LABS: Platelet Morphology Comment Appears Adequate
[2022-01-26 12:13] LABS: Anisocytosis SLIGHT = 6-15 cells (100X) (0-5/hpf); Burr Cells SLIGHT = 2-5 cells (100X) (0-1/hpf); Hypochromia SLIGHT = 6-15 cells (100X) (0-5/hpf)
[2022-01-26] MEDS: Ferrous Sulfate 325 MG TAB PO SCH (16:48)
[2022-01-26] MEDS: Escitalopram Oxalate 10 mg Tablet PO SCH (16:48)
[2022-01-26] MEDS: Isosorbide Dinitrate 10 MG TAB PO SCH (16:48)
[2022-01-26] MEDS: Saccharomyces boulardii 250 MG CAP PO SCH (16:49)
[2022-01-26] MEDS: Stress 600 With Zinc 1 TAB PO SCH (16:49)
[2022-01-26] MEDS: Liothyronine Sodium 5 MCG TAB PO SCH (16:50)
[2022-01-26] MEDS: Dextrose 5 %-0.45 % NaCl 1,000 ML IV SCH (18:47)
[2022-01-26] MEDS: Fenofibrate 48 MG TAB PO SCH (22:34)
[2022-01-26] MEDS: Atorvastatin Calcium 40 MG TAB PO SCH (22:34)
[2022-01-27] MEDS: Fentanyl 100 MCG/2 ML VIAL SLOW IVP PRN ×2 (00:10→05:43)
[2022-01-27] MEDS: Pantoprazole 40 MG VIAL IVP SCH ×3 (00:15→20:10)
[2022-01-27] MEDS: Lorazepam 2 MG/ML VIAL SLOW IVP PRN ×3 (02:34→14:34)
[2022-01-27] MEDS: Levothyroxine Sodium 25 MCG TAB PO SCH (05:48)
[2022-01-27] MEDS: Meropenem 500 MG in Sodium Chloride 0.9% 100 ML IVPB SCH ×2 (07:09→17:15)
[2022-01-27] MEDS: Oxybutynin 5 MG TAB PO SCH ×2 (08:22→20:10)
[2022-01-27] MEDS: Isosorbide Dinitrate 10 MG TAB PO SCH (08:22)
[2022-01-27] MEDS: Ferrous Sulfate 325 MG TAB PO SCH (08:22)
[2022-01-27] MEDS: Liothyronine Sodium 5 MCG TAB PO SCH (08:22)
[2022-01-27] MEDS: Escitalopram Oxalate 10 mg Tablet PO SCH (08:22)
[2022-01-27] MEDS: Saccharomyces boulardii 250 MG CAP PO SCH (08:22)
[2022-01-27] MEDS: Stress 600 With Zinc 1 TAB PO SCH (08:22)
[2022-01-27] MEDS: Dextrose 5 %-0.45 % NaCl 1,000 ML IV SCH (08:23)
[2022-01-27 09:22] LABS: Anion Gap 15 mmol/L (10-20); BUN (Urea Nitrogen) 40 mg/dL (9.8-20.1); Calc. Creatinine Clearance 22 mL/min (70-130); Carbon Dioxide 13 mmol/L (23-31); Estimated GFR 18; Glucose 110 mg/dL (83-110); Potassium 3.7 mmol/L (3.5-5.1); Sodium 151 mmol/L (136-145)
[2022-01-27 09:29] LABS: #Eosinphils 0.1 10x3/uL (0.0-0.5); #Monocytes 1.1 10x3/uL (0.0-1.1); #Neutrophils 11.8 10x3/uL (1.5-8.4); %Basophils 0.3 % (0.0-2.0); %Eosinophils 0.4 % (0.0-6.0); %Lymphocytes 5.8 % (18.0-47.0); %Monocytes 7.7 % (0.0-10.0); %Neutrophils 85.1 % (40.0-75.0); Hemoglobin 8.6 g/dL (12.0-15.5); Mean Corpuscular HGB CONC 30.8 g/dL (32.0-36.0); Mean Corpuscular Volume 87.5 fl (81.6-98.3); Mean Platelet Volume 9.7 fl (7.4-10.4); Platelet Count 174 10x3/uL (150-450); RBC Distribution Width 17.8 % (11.5-14.5); Red Blood Cell (RBC) Count 3.19 10x6/uL (3.90-5.03); White Blood Cell (WBC) Count 13.8 10x3/uL (3.5-10.5)
[2022-01-27 09:43] LABS: Chloride 127 mmol/L (98-107)
[2022-01-27] MEDS: Sodium Bicarbonate 50 MEQ in Dextrose 5% in Water 1,000 ML IV SCH (13:18)
[2022-01-27 14:07] LABS: Anion Gap 14 mmol/L (10-20); BUN (Urea Nitrogen) 40 mg/dL (9.8-20.1); Calc. Creatinine Clearance 22 mL/min (70-130); Carbon Dioxide 13 mmol/L (23-31); Estimated GFR 18; Glucose 125 mg/dL (83-110); Potassium 3.7 mmol/L (3.5-5.1); Sodium 151 mmol/L (136-145)
[2022-01-27 14:14] LABS: Chloride 128 mmol/L (98-107)
[2022-01-27 14:16] LABS: Creatinine, Urine 68.3 mg/dL (47-110)
[2022-01-27 19:36] LABS: Albumin 3.1 g/dL (3.4-4.8); Anion Gap 16 mmol/L (10-20); BUN (Urea Nitrogen) 39 mg/dL (9.8-20.1); BUN/Creatinine Ratio 15.42; Calc. Creatinine Clearance 22 mL/min (70-130); Calcium 9.2 mg/dL (7.8-10.44); Carbon Dioxide 15 mmol/L (23-31); Chloride 125 mmol/L (98-107); Estimated GFR 19; Glucose 127 mg/dL (83-110); Magnesium 2.2 mg/dL (1.6-2.6); Phosphorus 2.1 mg/dL (2.3-4.7); Potassium 3.7 mmol/L (3.5-5.1); Sodium 152 mmol/L (136-145)
[2022-01-27] MEDS: Atorvastatin Calcium 40 MG TAB PO SCH (20:10)
[2022-01-27] MEDS: Fenofibrate 48 MG TAB PO SCH (20:10)
[2022-01-28] MEDS: Sodium Bicarbonate 50 MEQ in Dextrose 5% in Water 1,000 ML IV SCH ×4 (02:07→22:08)
[2022-01-28] MEDS: Lorazepam 2 MG/ML VIAL SLOW IVP PRN ×3 (02:08→15:06)
[2022-01-28 05:25] LABS: #Eosinphils 0.2 10x3/uL (0.0-0.5); #Monocytes 0.9 10x3/uL (0.0-1.1); %Basophils 0.2 % (0.0-2.0); %Eosinophils 1.5 % (0.0-6.0); %Lymphocytes 10.2 % (18.0-47.0); %Monocytes 8.5 % (0.0-10.0); %Neutrophils 79.1 % (40.0-75.0); Hemoglobin 8.7 g/dL (12.0-15.5); Mean Corpuscular HGB CONC 32.3 g/dL (32.0-36.0); Mean Corpuscular Hemoglobin 27.4 pg (27.0-33.0); Mean Corpuscular Volume 84.6 fl (81.6-98.3); Mean Platelet Volume 9.2 fl (7.4-10.4); Platelet Count 213 10x3/uL (150-450); RBC Distribution Width 17.4 % (11.5-14.5); Red Blood Cell (RBC) Count 3.18 10x6/uL (3.90-5.03); White Blood Cell (WBC) Count 10.1 10x3/uL (3.5-10.5)
[2022-01-28 05:27] LABS: Albumin 2.9 g/dL (3.4-4.8); Anion Gap 11 mmol/L (10-20); BUN (Urea Nitrogen) 37 mg/dL (9.8-20.1); BUN/Creatinine Ratio 16.09; CRP (Inflammatory) 15.97 mg/dL (= or < 0.5); Calc. Creatinine Clearance 25 mL/min (70-130); Calcium 8.8 mg/dL (7.8-10.44); Carbon Dioxide 18 mmol/L (23-31); Chloride 122 mmol/L (98-107); Estimated GFR 21; Glucose 152 mg/dL (83-110); Magnesium 2.1 mg/dL (1.6-2.6); Potassium 3.4 mmol/L (3.5-5.1); Sodium 148 mmol/L (136-145)
[2022-01-28 05:34] LABS: Phosphorus 1.7 mg/dL (2.3-4.7)
[2022-01-28] MEDS: Meropenem 500 MG in Sodium Chloride 0.9% 100 ML IVPB SCH ×2 (05:48→17:30)
[2022-01-28] MEDS: Levothyroxine Sodium 25 MCG TAB PO SCH (06:01)
[2022-01-28] MEDS ORDERED: Potassium Phosphate 30 MMOL in Sodium Chloride 0.9% 250 ML 250 ML IVPB SCH (07:30)
[2022-01-28 07:43] LABS: Iron 18 ug/dL (50-170); Iron Binding Capacity, Total 230 mcg/dL (265-497)
[2022-01-28] MEDS: Ferrous Sulfate 325 MG TAB PO SCH (09:15)
[2022-01-28] MEDS: Pantoprazole 40 MG VIAL IVP SCH ×2 (09:15→20:03)
[2022-01-28] MEDS: Escitalopram Oxalate 10 mg Tablet PO SCH (09:15)
[2022-01-28] MEDS: Liothyronine Sodium 5 MCG TAB PO SCH (09:15)
[2022-01-28] MEDS: Saccharomyces boulardii 250 MG CAP PO SCH (09:15)
[2022-01-28] MEDS: Oxybutynin 5 MG TAB PO SCH ×2 (09:15→20:03)
[2022-01-28] MEDS: Isosorbide Dinitrate 10 MG TAB PO SCH (09:16)
[2022-01-28] MEDS: Stress 600 With Zinc 1 TAB PO SCH (09:16)
[2022-01-28] MEDS ORDERED: Iron, Sodium Ferric Gluconate 250 MG in Sodium Chloride 0.9% 250 ML 250 ML IVPB SCH (10:45)
[2022-01-28] MEDS ORDERED: EPOETIN ALFA-EPBX (ESRD) 4,000 UNIT/ML VIAL SC SCH (11:00)
[2022-01-28] MEDS: Fenofibrate 48 MG TAB PO SCH (20:03)
[2022-01-28] MEDS: Atorvastatin Calcium 40 MG TAB PO SCH (20:03)
[2022-01-28] MEDS: Fentanyl 100 MCG/2 ML VIAL SLOW IVP PRN (23:10)
[2022-01-29] MEDS: Lorazepam 2 MG/ML VIAL SLOW IVP PRN ×2 (02:28→16:35)
[2022-01-29] MEDS: Fentanyl 100 MCG/2 ML VIAL SLOW IVP PRN (04:53)
[2022-01-29] MEDS: Meropenem 500 MG in Sodium Chloride 0.9% 100 ML IVPB SCH ×2 (06:04→18:41)
[2022-01-29] MEDS: Levothyroxine Sodium 25 MCG TAB PO SCH (07:44)
[2022-01-29 08:37] LABS: Anion Gap 16 mmol/L (10-20); BUN (Urea Nitrogen) 29 mg/dL (9.8-20.1); Calc. Creatinine Clearance 33 mL/min (70-130); Calcium 8.2 mg/dL (7.8-10.44); Carbon Dioxide 17 mmol/L (23-31); Chloride 117 mmol/L (98-107); Estimated GFR 30; Glucose 116 mg/dL (83-110); Potassium 3.7 mmol/L (3.5-5.1); Sodium 146 mmol/L (136-145)
[2022-01-29] MEDS: Ferrous Sulfate 325 MG TAB PO SCH (08:37)
[2022-01-29] MEDS: Escitalopram Oxalate 10 mg Tablet PO SCH (08:37)
[2022-01-29] MEDS: Isosorbide Dinitrate 10 MG TAB PO SCH (08:38)
[2022-01-29] MEDS: Oxybutynin 5 MG TAB PO SCH ×2 (08:39→21:44)
[2022-01-29] MEDS: Liothyronine Sodium 5 MCG TAB PO SCH (08:39)
[2022-01-29] MEDS: Saccharomyces boulardii 250 MG CAP PO SCH (08:40)
[2022-01-29] MEDS: Stress 600 With Zinc 1 TAB PO SCH (08:40)
[2022-01-29] MEDS ORDERED: Furosemide 40 MG/4 ML VIAL SLOW IVP SCH (09:45)
[2022-01-29] MEDS: Iron, Sodium Ferric Gluconate 250 MG in Sodium Chloride 0.9% 250 ML 250 ML IVPB SCH (10:00)
[2022-01-29] MEDS: Pantoprazole 40 MG VIAL IVP SCH ×2 (10:08→21:44)
[2022-01-29 10:27] VITALS: BMI 32.8
[2022-01-29] MEDS ORDERED: Sodium Bicarbonate 75 MEQ, Admixture Fee 1 EACH in Dextrose 5% in Water 1,000 ML IV SCH (11:30)
[2022-01-29] MEDS: Sodium Bicarbonate 50 MEQ in Dextrose 5% in Water 1,000 ML IV SCH (17:13)
[2022-01-29] MEDS: clonazePAM 0.5 MG TAB PO PRN (21:30)
[2022-01-29] MEDS: Atorvastatin Calcium 40 MG TAB PO SCH (21:43)
[2022-01-29] MEDS: Fenofibrate 48 MG TAB PO SCH (21:44)
[2022-01-29] MEDS: Acetaminophen 650 MG Suppository PR PRN (21:44)
[2022-01-30 05:39] LABS: Anion Gap 15 mmol/L (10-20); BUN (Urea Nitrogen) 25 mg/dL (9.8-20.1); Calc. Creatinine Clearance 36 mL/min (70-130); Calcium 8.5 mg/dL (7.8-10.44); Carbon Dioxide 20 mmol/L (23-31); Chloride 120 mmol/L (98-107); Estimated GFR 33; Glucose 91 mg/dL (83-110); Potassium 3.6 mmol/L (3.5-5.1); Sodium 151 mmol/L (136-145)
[2022-01-30] MEDS: Meropenem 500 MG in Sodium Chloride 0.9% 100 ML IVPB SCH ×2 (05:49→18:10)
[2022-01-30] MEDS: Levothyroxine Sodium 25 MCG TAB PO SCH (05:49)
[2022-01-30 09:25] LABS: Magnesium 1.7 mg/dL (1.6-2.6); Phosphorus 3.9 mg/dL (2.3-4.7)
[2022-01-30] MEDS ORDERED: Sodium Bicarbonate 2.5 MEQ/5 ML VIAL ONE (09:32)
[2022-01-30] MEDS ORDERED: Lidocaine 1% MPF 2 ML VIAL ONE (09:32)
[2022-01-30] MEDS: Iron, Sodium Ferric Gluconate 250 MG in Sodium Chloride 0.9% 250 ML 250 ML IVPB SCH (13:30)
[2022-01-30] MEDS: Pantoprazole 40 MG VIAL IVP SCH ×2 (13:31→21:03)
[2022-01-30] MEDS: Sodium Bicarbonate 50 MEQ, Admixture Fee 1 EACH in Dextrose 5% in Water 1,000 ML IV SCH ×2 (13:35→19:45)
[2022-01-30] MEDS: Acetaminophen 325 MG TAB PO PRN (14:08)
[2022-01-30] MEDS: Liothyronine Sodium 5 MCG TAB PO SCH (14:09)
[2022-01-30] MEDS: Isosorbide Dinitrate 10 MG TAB PO SCH (14:09)
[2022-01-30] MEDS: Escitalopram Oxalate 10 mg Tablet PO SCH (14:10)
[2022-01-30] MEDS: Ferrous Sulfate 325 MG TAB PO SCH (14:10)
[2022-01-30] MEDS: Saccharomyces boulardii 250 MG CAP PO SCH (14:10)
[2022-01-30] MEDS: Stress 600 With Zinc 1 TAB PO SCH (14:11)
[2022-01-30] MEDS: Oxybutynin 5 MG TAB PO SCH ×2 (14:11→21:03)
[2022-01-30] MEDS: clonazePAM 0.5 MG TAB PO PRN (21:03)
[2022-01-30] MEDS: Melatonin 3 MG TAB PO PRN (21:03)
[2022-01-30] MEDS: Atorvastatin Calcium 40 MG TAB PO SCH (21:04)
[2022-01-30] MEDS: Fenofibrate 48 MG TAB PO SCH (21:04)
[2022-01-31] MEDS ORDERED: hydrALAZINE 20 MG/ML VIAL SLOW IVP PRN (01:28)
[2022-01-31] MEDS: Fentanyl 100 MCG/2 ML VIAL SLOW IVP PRN (02:22)
[2022-01-31] MEDS: Lorazepam 2 MG/ML VIAL SLOW IVP PRN (04:03)
[2022-01-31 05:51] LABS: Hemoglobin 8.4 g/dL (12.0-15.5); Mean Corpuscular HGB CONC 31.6 g/dL (32.0-36.0); Mean Corpuscular Hemoglobin 26.8 pg (27.0-33.0); Mean Platelet Volume 11.6 fl (7.4-10.4); Platelet Count 271 10x3/uL (150-450); RBC Distribution Width 17.1 % (11.5-14.5); Red Blood Cell (RBC) Count 3.13 10x6/uL (3.90-5.03)
[2022-01-31] MEDS: Levothyroxine Sodium 25 MCG TAB PO SCH (05:57)
[2022-01-31] MEDS: Meropenem 500 MG in Sodium Chloride 0.9% 100 ML IVPB SCH (05:57)
[2022-01-31 06:11] LABS: Anion Gap 16 mmol/L (10-20); BUN (Urea Nitrogen) 22 mg/dL (9.8-20.1); Calc. Creatinine Clearance 40 mL/min (70-130); Calcium 8.6 mg/dL (7.8-10.44); Carbon Dioxide 17 mmol/L (23-31); Chloride 118 mmol/L (98-107); Estimated GFR 37; Glucose 106 mg/dL (83-110); Potassium 3.1 mmol/L (3.5-5.1); Sodium 148 mmol/L (136-145)
[2022-01-31] MEDS: Sodium Bicarbonate 50 MEQ, Admixture Fee 1 EACH in Dextrose 5% in Water 1,000 ML IV SCH ×3 (06:32→22:02)
[2022-01-31] MEDS ORDERED: Potassium Phosphate 22 MMOL in Sodium Chloride 0.9% 250 ML 250 ML IVPB SCH (08:00)
[2022-01-31] MEDS: Magnesium 2 GM/50 ML(in water) 2 GM in Premix Bag 1 BAG IVPB SCH ×2 (08:18→10:28)
[2022-01-31] MEDS: Oxybutynin 5 MG TAB PO SCH ×2 (08:24→22:02)
[2022-01-31] MEDS: Ferrous Sulfate 325 MG TAB PO SCH (08:24)
[2022-01-31] MEDS: Isosorbide Dinitrate 10 MG TAB PO SCH (08:24)
[2022-01-31] MEDS: Liothyronine Sodium 5 MCG TAB PO SCH (08:24)
[2022-01-31] MEDS: Saccharomyces boulardii 250 MG CAP PO SCH (08:24)
[2022-01-31] MEDS: Escitalopram Oxalate 10 mg Tablet PO SCH (08:26)
[2022-01-31] MEDS: Stress 600 With Zinc 1 TAB PO SCH (08:27)
[2022-01-31] MEDS: Potassium Bicarbonate/Cit Ac 20 MEQ TAB PO SCH ×2 (10:20→22:03)
[2022-01-31] MEDS: Pantoprazole 40 MG VIAL IVP SCH ×2 (10:21→22:04)
[2022-01-31] MEDS: Clopidogrel Bisulfate 75 MG TAB PO SCH (10:22)
[2022-01-31] MEDS: Meropenem 1 GM in Sodium Chloride 0.9% 100 ML IVPB SCH ×2 (12:18→22:17)
[2022-01-31] MEDS: Iron, Sodium Ferric Gluconate 250 MG in Sodium Chloride 0.9% 250 ML 250 ML IVPB SCH (16:15)
[2022-01-31] MEDS: Senokot S 8.6-50 MG TAB PO SCH (22:03)
[2022-01-31] MEDS: Fenofibrate 48 MG TAB PO SCH (22:03)
[2022-01-31] MEDS: Atorvastatin Calcium 40 MG TAB PO SCH (22:03)
[2022-02-01] MEDS: Levothyroxine Sodium 25 MCG TAB PO SCH (06:43)
[2022-02-01 06:46] LABS: Anion Gap 13 mmol/L (10-20); BUN (Urea Nitrogen) 13 mg/dL (9.8-20.1); Calc. Creatinine Clearance 49 mL/min (70-130); Calcium 8.2 mg/dL (7.8-10.44); Carbon Dioxide 23 mmol/L (23-31); Chloride 113 mmol/L (98-107); Estimated GFR 48; Glucose 94 mg/dL (83-110); Potassium 3.4 mmol/L (3.5-5.1); Sodium 146 mmol/L (136-145)
[2022-02-01] MEDS ORDERED: Pantoprazole 40 MG VIAL ONE (08:22)
[2022-02-01] MEDS ORDERED: Sodium Bicarbonate Tab 325 MG TAB PO SCH (09:00)
[2022-02-01] MEDS ORDERED: Megestrol Acetate 800 MG/20 ML UDCUP PO SCH (09:00)
[2022-02-01] MEDS ORDERED: Megestrol Acetate 400 MG/10 ML UDCUP PO SCH (09:15)
[2022-02-01] MEDS: Meropenem 1 GM in Sodium Chloride 0.9% 100 ML IVPB SCH ×2 (09:17→23:10)
[2022-02-01] MEDS: Potassium Bicarbonate/Cit Ac 20 MEQ TAB PO SCH ×3 (09:26→20:32)
[2022-02-01] MEDS: Saccharomyces boulardii 250 MG CAP PO SCH (09:27)
[2022-02-01] MEDS: Isosorbide Dinitrate 10 MG TAB PO SCH (09:27)
[2022-02-01] MEDS: Liothyronine Sodium 5 MCG TAB PO SCH (09:28)
[2022-02-01] MEDS: Senokot S 8.6-50 MG TAB PO SCH ×2 (09:28→20:32)
[2022-02-01] MEDS: Stress 600 With Zinc 1 TAB PO SCH (09:28)
[2022-02-01] MEDS: Clopidogrel Bisulfate 75 MG TAB PO SCH (09:29)
[2022-02-01] MEDS: Oxybutynin 5 MG TAB PO SCH ×2 (09:29→20:32)
[2022-02-01] MEDS: Ferrous Sulfate 325 MG TAB PO SCH (09:29)
[2022-02-01] MEDS: Pantoprazole 40 MG VIAL IVP SCH ×2 (09:32→20:32)
[2022-02-01] MEDS: Fenofibrate 48 MG TAB PO SCH (20:32)
[2022-02-01] MEDS: Atorvastatin Calcium 40 MG TAB PO SCH (20:32)
[2022-02-01] MEDS: Fentanyl 100 MCG/2 ML VIAL SLOW IVP PRN (20:34)
[2022-02-02] MEDS: Levothyroxine Sodium 25 MCG TAB PO SCH (05:30)
[2022-02-02 07:33] LABS: Anion Gap 15 mmol/L (10-20); BUN (Urea Nitrogen) 13 mg/dL (9.8-20.1); BUN/Creatinine Ratio 10.66; Calc. Creatinine Clearance 45 mL/min (70-130); Calcium 8.7 mg/dL (7.8-10.44); Carbon Dioxide 21 mmol/L (23-31); Chloride 113 mmol/L (98-107); Estimated GFR 44; Glucose 81 mg/dL (83-110); Magnesium 1.9 mg/dL (1.6-2.6); Phosphorus 3.7 mg/dL (2.3-4.7); Potassium 3.6 mmol/L (3.5-5.1); Sodium 145 mmol/L (136-145)
[2022-02-02 08:43] LABS: Hemoglobin 9.5 g/dL (12.0-15.5); Mean Corpuscular HGB CONC 30.9 g/dL (32.0-36.0); Mean Corpuscular Hemoglobin 26.8 pg (27.0-33.0); Mean Corpuscular Volume 86.7 fl (81.6-98.3); Mean Platelet Volume 10.2 fl (7.4-10.4); Platelet Count 497 10x3/uL (150-450); RBC Distribution Width 16.8 % (11.5-14.5); Red Blood Cell (RBC) Count 3.54 10x6/uL (3.90-5.03); White Blood Cell (WBC) Count 13.8 10x3/uL (3.5-10.5)
[2022-02-02 08:44] LABS: Anion Gap 20 mmol/L (10-20); BUN (Urea Nitrogen) 13 mg/dL (9.8-20.1); Calc. Creatinine Clearance 43 mL/min (70-130); Carbon Dioxide 16 mmol/L (23-31); Chloride 113 mmol/L (98-107); Estimated GFR 42; Glucose 97 mg/dL (83-110); Sodium 145 mmol/L (136-145)
[2022-02-02 08:46] LABS: Potassium 4.1 mmol/L (3.5-5.1)
[2022-02-02] MEDS ORDERED: Sodium Bicarbonate Tab 325 MG TAB PO SCH (09:15)
[2022-02-02] MEDS: Acetaminophen 325 MG TAB PO PRN ×2 (09:16→20:27)
[2022-02-02] MEDS: Megestrol Acetate 400 MG/10 ML UDCUP PO SCH (09:18)
[2022-02-02] MEDS: Saccharomyces boulardii 250 MG CAP PO SCH ×2 (09:21→20:28)
[2022-02-02] MEDS: Potassium Bicarbonate/Cit Ac 20 MEQ TAB PO SCH ×2 (09:21→20:27)
[2022-02-02] MEDS: Isosorbide Dinitrate 10 MG TAB PO SCH (09:22)
[2022-02-02] MEDS: Liothyronine Sodium 5 MCG TAB PO SCH (09:22)
[2022-02-02] MEDS: Clopidogrel Bisulfate 75 MG TAB PO SCH (09:23)
[2022-02-02] MEDS: Oxybutynin 5 MG TAB PO SCH ×2 (09:23→20:28)
[2022-02-02] MEDS: Stress 600 With Zinc 1 TAB PO SCH (09:24)
[2022-02-02] MEDS: Senokot S 8.6-50 MG TAB PO SCH ×2 (09:24→22:17)
[2022-02-02] MEDS: Ferrous Sulfate 325 MG TAB PO SCH (09:25)
[2022-02-02] MEDS: Pantoprazole 40 MG VIAL IVP SCH ×2 (09:26→22:29)
[2022-02-02] MEDS: Meropenem 1 GM in Sodium Chloride 0.9% 100 ML IVPB SCH ×2 (13:04→22:29)
[2022-02-02] MEDS: Fentanyl 100 MCG/2 ML VIAL SLOW IVP PRN (18:15)
[2022-02-02] MEDS: Sodium Bicarbonate Tab 325 MG TAB PO SCH (20:27)
[2022-02-02] MEDS: Atorvastatin Calcium 40 MG TAB PO SCH (20:28)
[2022-02-02] MEDS: Fenofibrate 48 MG TAB PO SCH (20:28)
[2022-02-02] MEDS: Melatonin 3 MG TAB PO PRN (20:28)
[2022-02-03 06:22] LABS: Hemoglobin 8.8 g/dL (12.0-15.5); Mean Corpuscular HGB CONC 31.1 g/dL (32.0-36.0); Mean Corpuscular Hemoglobin 26.4 pg (27.0-33.0); Mean Platelet Volume 9.8 fl (7.4-10.4); Platelet Count 503 10x3/uL (150-450); RBC Distribution Width 16.8 % (11.5-14.5); Red Blood Cell (RBC) Count 3.33 10x6/uL (3.90-5.03); White Blood Cell (WBC) Count 9.6 10x3/uL (3.5-10.5)
[2022-02-03] MEDS: Levothyroxine Sodium 25 MCG TAB PO SCH (06:26)
[2022-02-03 06:54] LABS: Anion Gap 16 mmol/L (10-20); BUN (Urea Nitrogen) 15 mg/dL (9.8-20.1); Calc. Creatinine Clearance 46 mL/min (70-130); Calcium 8.7 mg/dL (7.8-10.44); Carbon Dioxide 19 mmol/L (23-31); Chloride 114 mmol/L (98-107); Estimated GFR 45; Glucose 83 mg/dL (83-110); Potassium 3.7 mmol/L (3.5-5.1); Sodium 145 mmol/L (136-145)
[2022-02-03 08:27] LABS: Magnesium 1.8 mg/dL (1.6-2.6)
[2022-02-03] MEDS: Megestrol Acetate 400 MG/10 ML UDCUP PO SCH (10:17)
[2022-02-03] MEDS: Pantoprazole 40 MG VIAL IVP SCH (10:24)
[2022-02-03] MEDS: Potassium Bicarbonate/Cit Ac 20 MEQ TAB PO SCH (10:24)
[2022-02-03] MEDS: Clopidogrel Bisulfate 75 MG TAB PO SCH (10:24)
[2022-02-03] MEDS: Ferrous Sulfate 325 MG TAB PO SCH (10:24)
[2022-02-03] MEDS: Oxybutynin 5 MG TAB PO SCH (10:24)
[2022-02-03] MEDS: Sodium Bicarbonate Tab 325 MG TAB PO SCH (10:25)
[2022-02-03] MEDS: Isosorbide Dinitrate 10 MG TAB PO SCH (10:25)
[2022-02-03] MEDS: Liothyronine Sodium 5 MCG TAB PO SCH (10:25)
[2022-02-03] MEDS: Saccharomyces boulardii 250 MG CAP PO SCH ×2 (10:27)
[2022-02-03] MEDS: Senokot S 8.6-50 MG TAB PO SCH (10:27)
[2022-02-03] MEDS: Stress 600 With Zinc 1 TAB PO SCH (10:28)
[2022-02-03] MEDS: Meropenem 1 GM in Sodium Chloride 0.9% 100 ML IVPB SCH (10:35)
[2022-02-03 11:50] VITALS: BP 107/52; TEMP 98.5
== END 2022-02-03 13:30 | DRG 698 ==
LOC: CSHERS 07:15 → CSHTELE 13:32 → OBSVTOIN 01-25 15:56
PROVIDERS: ADMIT Emergency Medicine; ATTEND Family Medicine
PROC: 0DH67UZ Insertion of Feeding Device into Stomach, Via Natural or Artificial Opening (ICD-10-PCS; principal; 2022-01-26)
PROC: 0DJ08ZZ Inspection of Upper Intestinal Tract, Via Natural or Artificial Opening Endoscopic (ICD-10-PCS; 2022-01-26)
PROC: 02HV33Z Insertion of Infusion Device into Superior Vena Cava, Percutaneous Approach (ICD-10-PCS; 2022-01-30)
DX: T83.511A Infection and inflammatory reaction due to indwelling urethral catheter, initial encounter (principal); A41.50 Gram-negative sepsis, unspecified; G93.41 Metabolic encephalopathy; I50.33 Acute on chronic diastolic (congestive) heart failure; N13.30 Unspecified hydronephrosis; I42.9 Cardiomyopathy, unspecified; N17.9 Acute kidney failure, unspecified; N10 Acute pyelonephritis; E87.0 Hyperosmolality and hypernatremia; E87.20 Acidosis, unspecified; I13.0 Hypertensive heart and chronic kidney disease with heart failure and stage 1 through stage 4 chronic kidney disease, or unspecified chronic kidney disease; F03.90 Unspecified dementia, unspecified severity, without behavioral disturbance, psychotic disturbance, mood disturbance, and anxiety; E78.5 Hyperlipidemia, unspecified; R32 Unspecified urinary incontinence; R33.9 Retention of urine, unspecified; Z96.653 Presence of artificial knee joint, bilateral; I25.10 Atherosclerotic heart disease of native coronary artery without angina pectoris; N18.9 Chronic kidney disease, unspecified; K21.9 Gastro-esophageal reflux disease without esophagitis; Z96.611 Presence of right artificial shoulder joint; Z96.612 Presence of left artificial shoulder joint; Z96.643 Presence of artificial hip joint, bilateral; R13.10 Dysphagia, unspecified; I48.91 Unspecified atrial fibrillation; E83.39 Other disorders of phosphorus metabolism; E86.9 Volume depletion, unspecified; E87.6 Hypokalemia; D50.9 Iron deficiency anemia, unspecified; R19.7 Diarrhea, unspecified; K29.70 Gastritis, unspecified, without bleeding; Z20.822 Contact with and (suspected) exposure to COVID-19; Z82.49 Family history of ischemic heart disease and other diseases of the circulatory system; Z79.899 Other long term (current) drug therapy; Z90.49 Acquired absence of other specified parts of digestive tract; Z79.890 Hormone replacement therapy; Z98.890 Other specified postprocedural states; Z79.02 Long term (current) use of antithrombotics/antiplatelets; Z88.8 Allergy status to other drugs, medicaments and biological substances; Z88.2 Allergy status to sulfonamides; Z95.0 Presence of cardiac pacemaker; Z88.5 Allergy status to narcotic agent; Z88.0 Allergy status to penicillin; Z91.09 Other allergy status, other than to drugs and biological substances; I25.2 Old myocardial infarction
CPT/HCPCS: 36415; 36569; 71045; 74177; 80048; 80053; 80069; 80202; 81003; 81015; 82570; 82728; 82805; 83540; 83550; 83605; 83735; 83880; 84100; 84145; 84156; 84300; 85025; 85027; 85610; 86140; 87040; 87077; 87086; 87149; 87186; 87324; 87449; 87811; 93005; 93306; 94640; 94760; 96361; 96365; 96366; 96375; 96376; C1751; C9113; G0378; J0360; J0692; J1885; J1940; J2060; J2185; J2543; J2916; J3010; J3370; J3475; J3490; J7042; J7050; J7070; J7620; Q5105; Q9967; U0002

== ENCOUNTER 2022-10-03 21:59 | Inpatient (IN) | payer MEDICARE, OTHER ==
[2022-10-03] MEDS ORDERED: Ondansetron PF 4 MG/2 ML Vial ONE (22:23)
[2022-10-03 22:57] LABS: #Eosinphils 0.1 10x3/uL (0.0-0.5); #Monocytes 1.1 10x3/uL (0.0-1.1); #Neutrophils 5.7 10x3/uL (1.5-8.4); %Basophils 0.5 % (0.0-2.0); %Eosinophils 0.9 % (0.0-6.0); %Monocytes 13.9 % (0.0-10.0); %Neutrophils 73.2 % (40.0-75.0); Hemoglobin 12.4 g/dL (12.0-15.5); Mean Corpuscular HGB CONC 32.1 g/dL (32.0-36.0); Mean Corpuscular Hemoglobin 28.7 pg (27.0-33.0); Mean Corpuscular Volume 89.4 fl (81.6-98.3); Mean Platelet Volume 9.4 fl (7.4-10.4); Platelet Count 243 10x3/uL (150-450); RBC Distribution Width 13.9 % (11.5-14.5); Red Blood Cell (RBC) Count 4.32 10x6/uL (3.90-5.03); White Blood Cell (WBC) Count 7.8 10x3/uL (3.5-10.5)
[2022-10-03 23:04] LABS: Bilirubin Neg (Negative); Blood, Urine 250 (Negative); Clarity Cloudy (Clear); Glucose, Urine (Dipstick) Normal (Negative); Ketone, Urine 5 mg/dL (Negative); Leukocyte 500 (Negative); Nitrite Negative (Negative); Protein, Urine (Dipstick) 30 mg/dl (Neg-Trace); Specific Gravity, Urine 1.015 (1.005-1.030); Urobilinogen Normal mg/dL (Less than 2)
[2022-10-03 23:12] LABS: ALT (SGPT) 17 U/L (8-55); AST (SGOT) 22 U/L (5-34); Albumin 3.9 g/dL (3.4-4.8); Alkaline Phosphatase 66 U/L (40-110); Anion Gap 21 mmol/L (10-20); BUN (Urea Nitrogen) 39 mg/dL (9.8-20.1); Bilirubin, Total 0.5 mg/dL (0.2-1.2); Calc. Creatinine Clearance 0 mL/min (70-130); Calcium 9.5 mg/dL (7.8-10.44); Carbon Dioxide 19 mmol/L (23-31); Chloride 102 mmol/L (98-107); Estimated GFR 27; Globulin 2.5 g/dL (2.4-3.5); Glucose 69 mg/dL (83-110); Lipase 12 U/L (8-78); Potassium 4.2 mmol/L (3.5-5.1); Protein, Total 6.4 g/dL (5.8-8.1); Sodium 138 mmol/L (136-145)
[2022-10-03 23:29] LABS: CAUTI Indications for Culture Dysuria,urgency,freq; Squamous Epithelial 0-3 HPF (0-3); WBC/HPF Greater than 50 HPF (0-3)
[2022-10-03 23:30] LABS: Bacteria/HPF 4+ HPF (None Seen)
[2022-10-03 23:32] LABS: Urine Culture Reflex Yes Yes
[2022-10-03] MEDS ORDERED: cefTRIAXone (ROCEPHIN) 1 GM VIAL ONE (23:46)
[2022-10-04] MEDS ORDERED: Dextrose 50% Abboject 50 ML SYRINGE ONE (00:01)
[2022-10-04 01:35] VITALS: BMI 30.1
[2022-10-04] MEDS ORDERED: Ondansetron PF 4 MG/2 ML Vial IVP PRN (01:46)
[2022-10-04] MEDS ORDERED: hydrALAZINE 20 MG/ML VIAL SLOW IVP PRN (01:54)
[2022-10-04] MEDS ORDERED: Ipratropium/Albuterol 3 ML NEB NEB PRN (02:28)
[2022-10-04] MEDS: Dextrose 5%-Lactated Ringers 1,000 ML IV SCH ×2 (02:56→22:10)
[2022-10-04] MEDS: Meropenem 500 MG in Sodium Chloride 0.9% 100 ML IVPB SCH ×2 (03:59→16:16)
[2022-10-04 04:44] LABS: Anion Gap 19 mmol/L (10-20); BUN (Urea Nitrogen) 38 mg/dL (9.8-20.1); Calc. Creatinine Clearance 29 mL/min (70-130); Calcium 9.6 mg/dL (7.8-10.44); Carbon Dioxide 19 mmol/L (23-31); Chloride 104 mmol/L (98-107); Estimated GFR 27; Glucose 83 mg/dL (83-110); Sodium 138 mmol/L (136-145)
[2022-10-04 04:47] LABS: #Eosinphils 0.1 10x3/uL (0.0-0.5); #Monocytes 0.9 10x3/uL (0.0-1.1); #Neutrophils 4.1 10x3/uL (1.5-8.4); %Basophils 0.3 % (0.0-2.0); %Eosinophils 1.4 % (0.0-6.0); %Lymphocytes 18.2 % (18.0-47.0); %Monocytes 14.4 % (0.0-10.0); %Neutrophils 64.9 % (40.0-75.0); Hemoglobin 13.1 g/dL (12.0-15.5); Mean Corpuscular HGB CONC 32.8 g/dL (32.0-36.0); Mean Corpuscular Hemoglobin 28.7 pg (27.0-33.0); Mean Corpuscular Volume 87.7 fl (81.6-98.3); Mean Platelet Volume 9.7 fl (7.4-10.4); Platelet Count 212 10x3/uL (150-450); RBC Distribution Width 13.8 % (11.5-14.5); Red Blood Cell (RBC) Count 4.56 10x6/uL (3.90-5.03); White Blood Cell (WBC) Count 6.3 10x3/uL (3.5-10.5)
[2022-10-04 05:13] LABS: Platelet Adequacy Comment Appears Adequate; RBC Morph Comment Within Normal Limits
[2022-10-04] MEDS: Famotidine/PF 20 mg/2ml Vial SLOW IVP SCH (08:05)
[2022-10-04] MEDS ORDERED: MD-Gastroview 120 ML BOT ONE (08:48)
[2022-10-04] MEDS ORDERED: cefTRIAXone\\ROCEPHIN 1 GM in Sodium Chloride 0.9% 100 ML IVPB SCH (22:00)
[2022-10-05] MEDS: Meropenem 500 MG in Sodium Chloride 0.9% 100 ML IVPB SCH ×2 (03:39→16:30)
[2022-10-05 04:24] LABS: #Basophils 0.1 10x3/uL (0.0-0.2); #Eosinphils 0.1 10x3/uL (0.0-0.5); #Monocytes 1.1 10x3/uL (0.0-1.1); %Basophils 0.7 % (0.0-2.0); %Eosinophils 1.9 % (0.0-6.0); %Monocytes 14.1 % (0.0-10.0); %Neutrophils 65.9 % (40.0-75.0); Hemoglobin 12.6 g/dL (12.0-15.5); Mean Corpuscular HGB CONC 31.5 g/dL (32.0-36.0); Mean Corpuscular Hemoglobin 28.7 pg (27.0-33.0); Mean Corpuscular Volume 91.1 fl (81.6-98.3); Mean Platelet Volume 9.3 fl (7.4-10.4); Platelet Count 235 10x3/uL (150-450); Red Blood Cell (RBC) Count 4.39 10x6/uL (3.90-5.03); White Blood Cell (WBC) Count 7.5 10x3/uL (3.5-10.5)
[2022-10-05 04:38] LABS: ALT (SGPT) 16 U/L (8-55); AST (SGOT) 18 U/L (5-34); Albumin 3.6 g/dL (3.4-4.8); Alkaline Phosphatase 59 U/L (40-110); Anion Gap 16 mmol/L (10-20); BUN (Urea Nitrogen) 27 mg/dL (9.8-20.1); Bilirubin, Total 0.3 mg/dL (0.2-1.2); Calc. Creatinine Clearance 39 mL/min (70-130); Calcium 9.5 mg/dL (7.8-10.44); Carbon Dioxide 22 mmol/L (23-31); Chloride 111 mmol/L (98-107); Estimated GFR 40; Globulin 2.8 g/dL (2.4-3.5); Glucose 97 mg/dL (83-110); Potassium 3.6 mmol/L (3.5-5.1); Protein, Total 6.4 g/dL (5.8-8.1); Sodium 145 mmol/L (136-145)
[2022-10-05] MEDS ORDERED: VANCOMYCIN 1.25 GM/250 ML BAG 1.25 GM in Premix Bag 1 BAG IVPB SCH (10:30)
[2022-10-05] MEDS: Famotidine/PF 20 mg/2ml Vial SLOW IVP SCH (10:43)
[2022-10-05] MEDS: fentaNYL 50 mcg/mL 1 mL Vial SLOW IVP PRN ×2 (11:16→16:32)
[2022-10-05 11:23] LABS: Actual Bicarbonate (HCO3v) 19.2 mEq/L (22-28); Base Excess -1.7 mEq/L (-2 - +2); Chloride (VBG) 114 mmol/L (98-106); Hematocrit-VBG 39 % (36.0-47.0); Hemoglobin (Hb) 13.1 g/dL (11.7-16.1); Potassium (VBG) 3.65 mmol/L (3.70-5.30); Puncture Site Other Site; Sodium 143.8 mmol/L (133-146); pH (venous) 7.534 (7.32-7.43)
[2022-10-05] MEDS ORDERED: Electrolyte Replacement Protocol 1 EACH FS PRN (14:55)
[2022-10-05] MEDS: Dextrose 5%-Lactated Ringers 1,000 ML IV SCH (18:17)
[2022-10-05] MEDS ORDERED: Gabapentin 300 MG CAP PO SCH (22:15)
[2022-10-05] MEDS: Melatonin 3 MG TAB PO PRN (22:28)
[2022-10-05] MEDS ORDERED: Ketorolac Tromethamine 30 MG/ML VIAL IVP SCH (22:30)
[2022-10-06] MEDS: Meropenem 500 MG in Sodium Chloride 0.9% 100 ML IVPB SCH (04:16)
[2022-10-06] MEDS: Dextrose 5%-Lactated Ringers 1,000 ML IV SCH (04:21)
[2022-10-06 04:55] LABS: #Eosinphils 0.2 10x3/uL (0.0-0.5); #Monocytes 0.7 10x3/uL (0.0-1.1); #Neutrophils 4.8 10x3/uL (1.5-8.4); %Basophils 0.6 % (0.0-2.0); %Eosinophils 3.2 % (0.0-6.0); %Lymphocytes 17.9 % (18.0-47.0); %Monocytes 10.4 % (0.0-10.0); %Neutrophils 67.3 % (40.0-75.0); Hemoglobin 12.3 g/dL (12.0-15.5); Mean Corpuscular HGB CONC 32.4 g/dL (32.0-36.0); Mean Corpuscular Volume 89.6 fl (81.6-98.3); Mean Platelet Volume 9.1 fl (7.4-10.4); Platelet Count 227 10x3/uL (150-450); Red Blood Cell (RBC) Count 4.24 10x6/uL (3.90-5.03); White Blood Cell (WBC) Count 7.1 10x3/uL (3.5-10.5)
[2022-10-06 05:06] LABS: Phosphorus 3.7 mg/dL (2.3-4.7)
[2022-10-06 05:08] LABS: Anion Gap 14 mmol/L (10-20); BUN (Urea Nitrogen) 19 mg/dL (9.8-20.1); Calc. Creatinine Clearance 46 mL/min (70-130); Calcium 9.5 mg/dL (7.8-10.44); Carbon Dioxide 22 mmol/L (23-31); Chloride 115 mmol/L (98-107); Estimated GFR 47; Glucose 104 mg/dL (83-110); Magnesium 1.9 mg/dL (1.6-2.6); Potassium 3.7 mmol/L (3.5-5.1); Sodium 147 mmol/L (136-145)
[2022-10-06] MEDS ORDERED: Magnesium 2 GM/50 ML(in water) 2 GM in Premix Bag 1 BAG IVPB SCH (09:00)
[2022-10-06] MEDS: Escitalopram Oxalate 10 mg Tablet PO SCH (09:52)
[2022-10-06] MEDS: Gabapentin 300 MG CAP PO SCH ×3 (09:52→21:08)
[2022-10-06] MEDS: Bupropion 150 MG XL TAB PO SCH (09:53)
[2022-10-06] MEDS: Famotidine/PF 20 mg/2ml Vial SLOW IVP SCH (09:54)
[2022-10-06] MEDS ORDERED: Vancomycin HCl 750 MG in Sodium Chloride 0.9% 250 ML 250 ML IVPB SCH (10:00)
[2022-10-06] MEDS: fentaNYL 50 mcg/mL 1 mL Vial SLOW IVP PRN ×3 (11:05→21:09)
[2022-10-06] MEDS: Meropenem 1 GM in Sodium Chloride 0.9% 100 ML IVPB SCH (15:25)
[2022-10-06] MEDS: Melatonin 3 MG TAB PO PRN (21:09)
[2022-10-07] MEDS: Meropenem 1 GM in Sodium Chloride 0.9% 100 ML IVPB SCH (03:42)
[2022-10-07 05:51] LABS: #Basophils 0.1 10x3/uL (0.0-0.2); #Eosinphils 0.3 10x3/uL (0.0-0.5); #Neutrophils 7.6 10x3/uL (1.5-8.4); %Basophils 0.5 % (0.0-2.0); %Eosinophils 2.4 % (0.0-6.0); %Lymphocytes 15.6 % (18.0-47.0); %Monocytes 9.7 % (0.0-10.0); %Neutrophils 71.1 % (40.0-75.0); Hemoglobin 12.1 g/dL (12.0-15.5); Mean Corpuscular HGB CONC 31.9 g/dL (32.0-36.0); Mean Corpuscular Hemoglobin 28.9 pg (27.0-33.0); Mean Corpuscular Volume 90.5 fl (81.6-98.3); Mean Platelet Volume 9.3 fl (7.4-10.4); Platelet Count 253 10x3/uL (150-450); RBC Distribution Width 13.8 % (11.5-14.5); Red Blood Cell (RBC) Count 4.19 10x6/uL (3.90-5.03); White Blood Cell (WBC) Count 10.7 10x3/uL (3.5-10.5)
[2022-10-07 06:06] LABS: ALT (SGPT) 18 U/L (8-55); AST (SGOT) 30 U/L (5-34); Albumin 3.5 g/dL (3.4-4.8); Alkaline Phosphatase 54 U/L (40-110); Anion Gap 16 mmol/L (10-20); BUN (Urea Nitrogen) 14 mg/dL (9.8-20.1); Bilirubin, Total 0.5 mg/dL (0.2-1.2); Calc. Creatinine Clearance 57 mL/min (70-130); Calcium 9.2 mg/dL (7.8-10.44); Carbon Dioxide 18 mmol/L (23-31); Chloride 117 mmol/L (98-107); Estimated GFR 62; Globulin 2.9 g/dL (2.4-3.5); Glucose 85 mg/dL (83-110); Magnesium 2.2 mg/dL (1.6-2.6); Potassium 3.6 mmol/L (3.5-5.1); Protein, Total 6.4 g/dL (5.8-8.1); Sodium 147 mmol/L (136-145)
[2022-10-07] MEDS: Famotidine/PF 20 mg/2ml Vial SLOW IVP SCH (08:07)
[2022-10-07] MEDS: Dextrose 5%-Lactated Ringers 1,000 ML IV SCH (08:10)
[2022-10-07] MEDS ORDERED: Dextrose 5% in Water 1,000 ML IV SCH (08:15)
[2022-10-07] MEDS: Escitalopram Oxalate 10 mg Tablet PO SCH ×2 (08:17→10:01)
[2022-10-07] MEDS: Gabapentin 300 MG CAP PO SCH ×3 (08:18→21:03)
[2022-10-07] MEDS ORDERED: OLANZapine 10 MG VIAL IM SCH (09:00)
[2022-10-07] MEDS ORDERED: hydrALAZINE 20 MG/ML VIAL ONE (12:30)
[2022-10-07] MEDS: hydrALAZINE 20 MG/ML VIAL SLOW IVP PRN ×2 (12:38→14:55)
[2022-10-07 13:33] LABS: Anion Gap 18 mmol/L (10-20); BUN (Urea Nitrogen) 13 mg/dL (9.8-20.1); Calc. Creatinine Clearance 59 mL/min (70-130); Calcium 9.1 mg/dL (7.8-10.44); Carbon Dioxide 13 mmol/L (23-31); Chloride 120 mmol/L (98-107); Estimated GFR 65; Glucose 100 mg/dL (83-110); Sodium 147 mmol/L (136-145)
[2022-10-07 13:42] LABS: Potassium 4.2 mmol/L (3.5-5.1)
[2022-10-07] MEDS: fentaNYL 50 mcg/mL 1 mL Vial SLOW IVP PRN (14:09)
[2022-10-07] MEDS: Dextrose 5% in Water 1,000 ML IV SCH (14:42)
[2022-10-07] MEDS ORDERED: Polyvinyl Alcohol 1.4%/Povidone 0.6% Opth Drops EA EYE PRN (15:13)
[2022-10-07] MEDS: cefTRIAXone\\ROCEPHIN 1 GM in Sodium Chloride 0.9% 100 ML IVPB SCH (18:16)
[2022-10-07 18:43] LABS: Anion Gap 16 mmol/L (10-20); BUN (Urea Nitrogen) 12 mg/dL (9.8-20.1); Calc. Creatinine Clearance 61 mL/min (70-130); Calcium 9.6 mg/dL (7.8-10.44); Carbon Dioxide 22 mmol/L (23-31); Chloride 114 mmol/L (98-107); Estimated GFR 67; Glucose 85 mg/dL (83-110); Potassium 2.9 mmol/L (3.5-5.1); Sodium 149 mmol/L (136-145)
[2022-10-07] MEDS: Potassium Chloride 20 MEQ TAB PO SCH ×2 (21:04→23:46)
[2022-10-07] MEDS: Methocarbamol 500 MG TAB PO SCH (21:04)
[2022-10-07] MEDS: Mirtazapine 15 MG Soltab PO SCH (21:05)
[2022-10-07] MEDS: traMADol HCl 50 MG TAB PO SCH (21:05)
[2022-10-07] MEDS: Melatonin 3 MG TAB PO SCH (22:24)
[2022-10-07 23:43] LABS: Anion Gap 14 mmol/L (10-20); BUN (Urea Nitrogen) 12 mg/dL (9.8-20.1); Calc. Creatinine Clearance 59 mL/min (70-130); Calcium 9.1 mg/dL (7.8-10.44); Carbon Dioxide 22 mmol/L (23-31); Chloride 116 mmol/L (98-107); Estimated GFR 64; Glucose 89 mg/dL (83-110); Potassium 2.8 mmol/L (3.5-5.1); Sodium 149 mmol/L (136-145)
[2022-10-08] MEDS ORDERED: Potassium Chloride 20 MEQ TAB PO SCH ×3 (01:00→17:30)
[2022-10-08] MEDS: Meropenem 1 GM in Sodium Chloride 0.9% 100 ML IVPB SCH (01:29)
[2022-10-08 05:15] LABS: #Basophils 0.1 10x3/uL (0.0-0.2); #Eosinphils 0.4 10x3/uL (0.0-0.5); #Monocytes 1.1 10x3/uL (0.0-1.1); #Neutrophils 6.7 10x3/uL (1.5-8.4); %Basophils 0.9 % (0.0-2.0); %Lymphocytes 18.8 % (18.0-47.0); %Monocytes 10.9 % (0.0-10.0); %Neutrophils 64.2 % (40.0-75.0); Mean Corpuscular HGB CONC 30.7 g/dL (32.0-36.0); Mean Corpuscular Hemoglobin 28.4 pg (27.0-33.0); Mean Corpuscular Volume 92.8 fl (81.6-98.3); Mean Platelet Volume 9.3 fl (7.4-10.4); Platelet Count 256 10x3/uL (150-450); Red Blood Cell (RBC) Count 4.57 10x6/uL (3.90-5.03); White Blood Cell (WBC) Count 10.1 10x3/uL (3.5-10.5)
[2022-10-08 05:29] LABS: ALT (SGPT) 22 U/L (8-55); AST (SGOT) 31 U/L (5-34); Albumin 3.4 g/dL (3.4-4.8); Alkaline Phosphatase 55 U/L (40-110); Anion Gap 13 mmol/L (10-20); BUN (Urea Nitrogen) 14 mg/dL (9.8-20.1); Bilirubin, Total 0.4 mg/dL (0.2-1.2); Calc. Creatinine Clearance 50 mL/min (70-130); Carbon Dioxide 20 mmol/L (23-31); Chloride 117 mmol/L (98-107); Estimated GFR 53; Globulin 2.5 g/dL (2.4-3.5); Glucose 80 mg/dL (83-110); Potassium 3.3 mmol/L (3.5-5.1); Protein, Total 5.9 g/dL (5.8-8.1); Sodium 147 mmol/L (136-145)
[2022-10-08] MEDS: Levothyroxine Sodium 25 MCG TAB PO SCH (06:33)
[2022-10-08] MEDS ORDERED: Furosemide 20 MG TAB PO SCH (09:00)
[2022-10-08] MEDS: Famotidine/PF 20 mg/2ml Vial SLOW IVP SCH (10:50)
[2022-10-08] MEDS: Escitalopram Oxalate 10 mg Tablet PO SCH (10:52)
[2022-10-08] MEDS: Gabapentin 300 MG CAP PO SCH ×3 (10:52→21:32)
[2022-10-08] MEDS: Clopidogrel Bisulfate 75 MG TAB PO SCH (10:54)
[2022-10-08] MEDS: traMADol HCl 50 MG TAB PO SCH ×2 (10:54→21:31)
[2022-10-08] MEDS: Bupropion 150 MG XL TAB PO SCH (10:56)
[2022-10-08] MEDS: Saccharomyces boulardii 250 MG CAP PO SCH (11:00)
[2022-10-08] MEDS: Dextrose 5% in Water 1,000 ML IV SCH (11:01)
[2022-10-08] MEDS: cefTRIAXone\\ROCEPHIN 1 GM in Sodium Chloride 0.9% 100 ML IVPB SCH (15:50)
[2022-10-08 17:02] LABS: Anion Gap 14 mmol/L (10-20); BUN (Urea Nitrogen) 17 mg/dL (9.8-20.1); Calc. Creatinine Clearance 51 mL/min (70-130); Calcium 9.1 mg/dL (7.8-10.44); Carbon Dioxide 19 mmol/L (23-31); Chloride 117 mmol/L (98-107); Estimated GFR 54; Glucose 112 mg/dL (83-110); Potassium 3.1 mmol/L (3.5-5.1); Sodium 147 mmol/L (136-145)
[2022-10-08 20:08] LABS: Anion Gap 14 mmol/L (10-20); BUN (Urea Nitrogen) 19 mg/dL (9.8-20.1); Calc. Creatinine Clearance 46 mL/min (70-130); Calcium 8.9 mg/dL (7.8-10.44); Carbon Dioxide 17 mmol/L (23-31); Chloride 117 mmol/L (98-107); Estimated GFR 48; Glucose 106 mg/dL (83-110); Potassium 3.1 mmol/L (3.5-5.1); Sodium 145 mmol/L (136-145)
[2022-10-08] MEDS: Melatonin 3 MG TAB PO SCH (21:31)
[2022-10-08] MEDS: Mirtazapine 15 MG Soltab PO SCH (21:32)
[2022-10-08] MEDS: Methocarbamol 500 MG TAB PO SCH (21:32)
[2022-10-08 22:21] LABS: Anion Gap 16 mmol/L (10-20); BUN (Urea Nitrogen) 18 mg/dL (9.8-20.1); Calc. Creatinine Clearance 44 mL/min (70-130); Calcium 8.8 mg/dL (7.8-10.44); Carbon Dioxide 17 mmol/L (23-31); Chloride 115 mmol/L (98-107); Estimated GFR 45; Glucose 108 mg/dL (83-110); Potassium 3.7 mmol/L (3.5-5.1); Sodium 144 mmol/L (136-145)
[2022-10-09 05:12] LABS: #Basophils 0.1 10x3/uL (0.0-0.2); #Eosinphils 0.4 10x3/uL (0.0-0.5); #Monocytes 1.1 10x3/uL (0.0-1.1); #Neutrophils 6.7 10x3/uL (1.5-8.4); %Basophils 0.5 % (0.0-2.0); %Eosinophils 3.5 % (0.0-6.0); %Lymphocytes 19.6 % (18.0-47.0); %Monocytes 10.5 % (0.0-10.0); %Neutrophils 64.9 % (40.0-75.0); Hemoglobin 11.9 g/dL (12.0-15.5); Mean Corpuscular HGB CONC 31.7 g/dL (32.0-36.0); Mean Corpuscular Hemoglobin 28.8 pg (27.0-33.0); Mean Corpuscular Volume 90.8 fl (81.6-98.3); Mean Platelet Volume 9.5 fl (7.4-10.4); Platelet Count 281 10x3/uL (150-450); RBC Distribution Width 13.9 % (11.5-14.5); Red Blood Cell (RBC) Count 4.13 10x6/uL (3.90-5.03); White Blood Cell (WBC) Count 10.3 10x3/uL (3.5-10.5)
[2022-10-09 05:24] LABS: Anion Gap 15 mmol/L (10-20); BUN (Urea Nitrogen) 19 mg/dL (9.8-20.1); Calc. Creatinine Clearance 42 mL/min (70-130); Calcium 8.4 mg/dL (7.8-10.44); Carbon Dioxide 16 mmol/L (23-31); Chloride 114 mmol/L (98-107); Estimated GFR 43; Glucose 95 mg/dL (83-110); Potassium 3.5 mmol/L (3.5-5.1); Sodium 141 mmol/L (136-145)
[2022-10-09] MEDS: Levothyroxine Sodium 25 MCG TAB PO SCH (05:24)
[2022-10-09 05:39] LABS: Magnesium 1.5 mg/dL (1.6-2.6)
[2022-10-09] MEDS ORDERED: Potassium Chloride 20 MEQ TAB PO SCH (08:00)
[2022-10-09] MEDS ORDERED: Magnesium 2 GM/50 ML(in water) 2 GM in Premix Bag 1 BAG IVPB SCH (08:00)
[2022-10-09] MEDS: Gabapentin 300 MG CAP PO SCH ×2 (09:31→15:26)
[2022-10-09] MEDS: Saccharomyces boulardii 250 MG CAP PO SCH (09:33)
[2022-10-09] MEDS: Escitalopram Oxalate 10 mg Tablet PO SCH (09:33)
[2022-10-09] MEDS: Clopidogrel Bisulfate 75 MG TAB PO SCH (09:34)
[2022-10-09] MEDS: Bupropion 150 MG XL TAB PO SCH (09:34)
[2022-10-09] MEDS: traMADol HCl 50 MG TAB PO SCH (09:50)
[2022-10-09] MEDS: Dextrose 5% in Water 1,000 ML IV SCH (10:22)
[2022-10-09] MEDS: Famotidine/PF 20 mg/2ml Vial SLOW IVP SCH (10:22)
[2022-10-09 12:20] LABS: Potassium 3.6 mmol/L (3.5-5.1)
[2022-10-09 17:07] VITALS: BP 123/58; TEMP 98.8
[2022-10-09] MEDS: cefTRIAXone\\ROCEPHIN 1 GM in Sodium Chloride 0.9% 100 ML IVPB SCH (18:30)
== END 2022-10-09 18:40 | DRG 389 ==
LOC: CSHERS 21:59 → CSHTELE 10-04 01:27 → OBSVTOIN 10-04 01:46
PROVIDERS: ADMIT Student in an Organized Health Care Education/Training Program; ATTEND Internal Medicine
DX: K56.609 Unspecified intestinal obstruction, unspecified as to partial versus complete obstruction (principal); E87.0 Hyperosmolality and hypernatremia; I13.0 Hypertensive heart and chronic kidney disease with heart failure and stage 1 through stage 4 chronic kidney disease, or unspecified chronic kidney disease; N13.6 Pyonephrosis; N17.9 Acute kidney failure, unspecified; D63.1 Anemia in chronic kidney disease; D50.9 Iron deficiency anemia, unspecified; J44.9 Chronic obstructive pulmonary disease, unspecified; E86.0 Dehydration; E78.5 Hyperlipidemia, unspecified; E03.9 Hypothyroidism, unspecified; I48.91 Unspecified atrial fibrillation; F03.90 Unspecified dementia, unspecified severity, without behavioral disturbance, psychotic disturbance, mood disturbance, and anxiety; K21.9 Gastro-esophageal reflux disease without esophagitis; I50.9 Heart failure, unspecified; N18.2 Chronic kidney disease, stage 2 (mild); Z96.643 Presence of artificial hip joint, bilateral; R33.9 Retention of urine, unspecified; Z96.653 Presence of artificial knee joint, bilateral; Z96.611 Presence of right artificial shoulder joint; Z96.612 Presence of left artificial shoulder joint; I49.5 Sick sinus syndrome; Z88.6 Allergy status to analgesic agent; Z91.09 Other allergy status, other than to drugs and biological substances; Z88.8 Allergy status to other drugs, medicaments and biological substances; Z91.018 Allergy to other foods; Z88.1 Allergy status to other antibiotic agents; Z88.5 Allergy status to narcotic agent; Z88.2 Allergy status to sulfonamides; Z79.899 Other long term (current) drug therapy; Z79.82 Long term (current) use of aspirin; Z79.890 Hormone replacement therapy; I25.2 Old myocardial infarction; Z95.0 Presence of cardiac pacemaker; Z90.710 Acquired absence of both cervix and uterus; Z90.49 Acquired absence of other specified parts of digestive tract
CPT/HCPCS: 36415; 36416; 51701; 70450; 71045; 74176; 74250; 76770; 80048; 80053; 81001; 82805; 83605; 83690; 83735; 83880; 84100; 84145; 84484; 85025; 87040; 87077; 87081; 87086; 87186; 87324; 87449; 93005; 94760; 96365; 96375; J0360; J0696; J1650; J1885; J2185; J2405; J3010; J3370; J3475; J3490; J7050; J7070; Q9963; S0028

== ENCOUNTER 2023-10-04 23:46 | Inpatient (IN) | payer MEDICARE, OTHER ==
[2023-10-05 00:17] LABS: #Basophils 0.03 10x3/uL (0.0-0.2); #Eosinphils 0.09 10x3/uL (0.0-0.5); #Monocytes 0.81 10x3/uL (0.0-1.1); #Neutrophils 11.09 10x3/uL (1.5-8.4); %Basophils 0.2 % (0.0-2.0); %Eosinophils 0.7 % (0.0-6.0); %Lymphocytes 4.4 % (18.0-47.0); %Monocytes 6.4 % (0.0-10.0); %Neutrophils 87.8 % (40.0-75.0); Hematocrit 28.6 % (34.9-44.5); Hemoglobin 9.3 g/dL (12.0-15.5); Mean Corpuscular HGB CONC 32.5 g/dL (32.0-36.0); Mean Corpuscular Hemoglobin 30.5 pg (27.0-33.0); Mean Corpuscular Volume 93.8 fL (81.6-98.3); Mean Platelet Volume 8.4 fL (7.4-10.4); Platelet Count 245 10x3/uL (150-450); Red Blood Cell (RBC) Count 3.05 10x6/uL (3.90-5.03); White Blood Cell (WBC) Count 12.6 10x3/uL (3.5-10.5)
[2023-10-05] MEDS ORDERED: Acetaminophen 325 MG TAB ONE (00:23)
[2023-10-05] MEDS ORDERED: LevoFLOXacin 750 mg/D5W 150 ml Premix Bag ONE (00:24)
[2023-10-05 00:30] LABS: ALT (SGPT) 12 U/L (8-55); AST (SGOT) 15 U/L (5-34); Albumin 3.3 g/dL (3.4-4.8); Alkaline Phosphatase 56 U/L (40-110); Anion Gap 13 mmol/L (10-20); BUN (Urea Nitrogen) 27 mg/dL (9.8-20.1); Bilirubin, Total 0.5 mg/dL (0.2-1.2); Calc. Creatinine Clearance 0 mL/min (70-130); Calcium 9.1 mg/dL (7.8-10.44); Carbon Dioxide 22 mmol/L (23-31); Chloride 111 mmol/L (98-107); Estimated GFR 50; Globulin 2.2 g/dL (2.4-3.5); Glucose 115 mg/dL (83-110); Protein, Total 5.5 g/dL (5.8-8.1); Sodium 142 mmol/L (136-145)
[2023-10-05 00:36] LABS: Troponin I 0.011 ng/mL (< 0.028)
[2023-10-05 01:48] LABS: Influenza A by NAA Not Detected (NotDetected); Influenza B by NAA Not Detected (NotDetected); SARS-CoV-2 NAA Rapid Test Not Detected (NotDetected)
[2023-10-05] MEDS ORDERED: Cefepime 2 GM VIAL ONE (01:54)
[2023-10-05 02:13] LABS: Bilirubin 1+ (Negative); Blood, Urine 150 (Negative); Clarity Cloudy (Clear); Glucose, Urine (Dipstick) 100 mg/dL (Negative); Ketone, Urine Negative (Negative); Leukocyte 500 (Negative); Nitrite Positive (Negative); Protein, Urine (Dipstick) 100 mg/dl (Neg-Trace); Specific Gravity, Urine 1.015 (1.005-1.030)
[2023-10-05] MEDS ORDERED: Communication Order-Pharmacy FS PRN (02:14)
[2023-10-05] MEDS ORDERED: Vancomycin 1.5 GRAM/300 ML BAG 1.5 GM in Premix 1 BAG IVPB SCH (02:15)
[2023-10-05 02:28] LABS: CAUTI Indications for Culture Fever or rigors; WBC/HPF Greater Than 50 HPF (0-3)
[2023-10-05 02:29] LABS: Bacteria/HPF 4+ HPF (None Seen); Calcium Oxalate Crystals Rare HPF (None Seen); Squamous Epithelial 0-3 HPF (0-3)
[2023-10-05] MEDS ORDERED: Melatonin 3 MG TAB PO PRN (02:29)
[2023-10-05 02:30] LABS: Urine Culture Reflex Yes Yes
[2023-10-05 02:45] LABS: Magnesium 1.6 mg/dL (1.6-2.6)
[2023-10-05 03:52] LABS: Troponin I Less than 0.010 ng/mL (< 0.028)
[2023-10-05 05:43] VITALS: BMI 23.9
[2023-10-05] MEDS: Levothyroxine Sodium 25 MCG TAB PO SCH (05:43)
[2023-10-05] MEDS: Sodium Chloride 0.9% 1,000 ML IV SCH (05:43)
[2023-10-05] MEDS: Vancomycin 1.5 GRAM/300 ML BAG 1.5 GM in Premix 1 BAG IVPB SCH (06:51)
[2023-10-05] MEDS: Cefepime 2 GM in Sodium Chloride 0.9% 100 ML IVPB SCH (08:29)
[2023-10-05] MEDS: Ferrous Sulfate 325 MG TAB PO SCH (09:39)
[2023-10-05] MEDS: Bupropion 150 MG SR.TAB PO SCH (09:40)
[2023-10-05] MEDS: Pantoprazole DR 40 MG TAB PO SCH (09:40)
[2023-10-05] MEDS: Carvedilol 3.125 MG TAB PO SCH (09:40)
[2023-10-05] MEDS: Cholecalciferol 1,000 UNITS (25 MCG) TAB PO SCH (09:40)
[2023-10-05] MEDS: Escitalopram Oxalate 10 mg Tablet PO SCH (09:41)
[2023-10-05] MEDS: Enoxaparin 40 MG (0.4 mL) SYRINGE SC SCH (09:41)
[2023-10-05] MEDS: Magnesium Oxide 400 MG TAB PO SCH (09:41)
[2023-10-05] MEDS: Cefepime 1 GM in Sodium Chloride 0.9% 100 ML IVPB SCH (17:32)
[2023-10-05] MEDS: traMADol HCl 50 MG TAB PO PRN (20:17)
[2023-10-05] MEDS: Melatonin 3 MG TAB PO PRN (21:32)
[2023-10-06 05:28] LABS: Anion Gap 10 mmol/L (10-20); BUN (Urea Nitrogen) 21 mg/dL (9.8-20.1); Calc. Creatinine Clearance 41 mL/min (70-130); Calcium 8.8 mg/dL (7.8-10.44); Carbon Dioxide 19 mmol/L (23-31); Chloride 117 mmol/L (98-107); Estimated GFR 56; Glucose 94 mg/dL (83-110); Potassium 3.9 mmol/L (3.5-5.1); Sodium 142 mmol/L (136-145)
[2023-10-06 05:33] LABS: #Basophils 0.05 10x3/uL (0.0-0.2); #Eosinphils 0.15 10x3/uL (0.0-0.5); #Monocytes 0.91 10x3/uL (0.0-1.1); #Neutrophils 8.78 10x3/uL (1.5-8.4); %Basophils 0.5 % (0.0-2.0); %Eosinophils 1.4 % (0.0-6.0); %Lymphocytes 6.6 % (18.0-47.0); %Monocytes 8.6 % (0.0-10.0); %Neutrophils 82.5 % (40.0-75.0); Hematocrit 26.7 % (34.9-44.5); Hemoglobin 8.4 g/dL (12.0-15.5); Mean Corpuscular HGB CONC 31.5 g/dL (32.0-36.0); Mean Corpuscular Hemoglobin 30.5 pg (27.0-33.0); Mean Corpuscular Volume 97.1 fL (81.6-98.3); Mean Platelet Volume 9.2 fL (7.4-10.4); Platelet Count 168 10x3/uL (150-450); RBC Distribution Width 14.5 % (11.5-14.5); Red Blood Cell (RBC) Count 2.75 10x6/uL (3.90-5.03); White Blood Cell (WBC) Count 10.6 10x3/uL (3.5-10.5)
[2023-10-06 05:38] LABS: Vancomycin, Random 13.6 ug/mL (See Comment)
[2023-10-06] MEDS: Levothyroxine Sodium 25 MCG TAB PO SCH (05:56)
[2023-10-06] MEDS: Vancomycin HCl 750 MG in Sodium Chloride 0.9% 250 ML 250 ML IVPB SCH (09:30)
[2023-10-06] MEDS: Ondansetron PF 4 MG/2 ML Vial IVP SCH (11:04)
[2023-10-06] MEDS: Carvedilol 3.125 MG TAB PO SCH (12:34)
[2023-10-06] MEDS ORDERED: Benzonatate 100 MG CAP PO PRN (13:24)
[2023-10-06] MEDS: Ondansetron PF 4 MG/2 ML Vial IVP PRN (18:50)
[2023-10-06] MEDS: Oxybutynin 5 MG TAB PO SCH (20:17)
[2023-10-06] MEDS: Acetaminophen 325 MG TAB PO PRN (23:23)
[2023-10-07] MEDS ORDERED: LevoFLOXacin 750 mg/D5W 750 MG in Premix 1 BAG IVPB SCH (01:00)
[2023-10-07] MEDS: traMADol HCl 50 MG TAB PO SCH (01:08)
[2023-10-07 05:44] LABS: #Basophils 0.02 10x3/uL (0.0-0.2); #Eosinphils 0.31 10x3/uL (0.0-0.5); #Neutrophils 5.98 10x3/uL (1.5-8.4); %Basophils 0.2 % (0.0-2.0); %Eosinophils 3.8 % (0.0-6.0); %Lymphocytes 11.4 % (18.0-47.0); %Monocytes 9.9 % (0.0-10.0); %Neutrophils 74.3 % (40.0-75.0); Hematocrit 26.4 % (34.9-44.5); Hemoglobin 8.5 g/dL (12.0-15.5); Mean Corpuscular HGB CONC 32.2 g/dL (32.0-36.0); Mean Corpuscular Hemoglobin 30.2 pg (27.0-33.0); Platelet Count 190 10x3/uL (150-450); RBC Distribution Width 13.8 % (11.5-14.5); Red Blood Cell (RBC) Count 2.81 10x6/uL (3.90-5.03); White Blood Cell (WBC) Count 8.1 10x3/uL (3.5-10.5)
[2023-10-07 06:08] LABS: Vancomycin, Random 12.9 ug/mL (See Comment)
[2023-10-07 06:09] LABS: Anion Gap 11 mmol/L (10-20); BUN (Urea Nitrogen) 14 mg/dL (9.8-20.1); Calc. Creatinine Clearance 51 mL/min (70-130); Calcium 9.1 mg/dL (7.8-10.44); Carbon Dioxide 19 mmol/L (23-31); Chloride 115 mmol/L (98-107); Estimated GFR 72; Glucose 81 mg/dL (83-110); Potassium 3.7 mmol/L (3.5-5.1); Sodium 141 mmol/L (136-145)
[2023-10-07] MEDS ORDERED: Vancomycin HCl 750 MG in Sodium Chloride 0.9% 250 ML 250 ML IVPB SCH (07:30)
[2023-10-07] MEDS: Saccharomyces boulardii 250 MG CAP PO SCH (08:09)
[2023-10-07] MEDS: Meropenem 1 GM in Sodium Chloride 0.9% 100 ML IVPB SCH ×2 (08:09→17:09)
[2023-10-07] MEDS: Lidocaine 4% Patch TP SCH (08:09)
[2023-10-07] MEDS: Gabapentin 300 MG CAP PO SCH (08:28)
[2023-10-07] MEDS: Sodium Bicarbonate Tab 325 MG TAB PO SCH (08:28)
[2023-10-07] MEDS: Metamucil PACK PO SCH (08:46)
[2023-10-07 10:42] LABS: ALT (SGPT) 10 U/L (8-55); AST (SGOT) 11 U/L (5-34); Albumin 2.7 g/dL (3.4-4.8); Alkaline Phosphatase 43 U/L (40-110); Bilirubin, Direct 0.2 mg/dL (0.1-0.3); Bilirubin, Total 0.4 mg/dL (0.2-1.2); Lipase 11 U/L (8-78); Protein, Total 5.3 g/dL (5.8-8.1)
[2023-10-07 11:11] LABS: Hematocrit 27.8 % (34.9-44.5)
[2023-10-07] MEDS: Methocarbamol 500 MG TAB PO SCH (20:30)
[2023-10-07] MEDS: Transdermal Patch Removal - LIDOCAINE TOP SCH (20:52)
[2023-10-07] MEDS: Polyvinyl Alcohol 1.4%/Povidone 0.6% Opth Drops EA EYE PRN (20:52)
[2023-10-08 07:26] LABS: #Basophils 0.04 10x3/uL (0.0-0.2); #Eosinphils 0.28 10x3/uL (0.0-0.5); #Monocytes 0.67 10x3/uL (0.0-1.1); #Neutrophils 4.44 10x3/uL (1.5-8.4); %Basophils 0.6 % (0.0-2.0); %Eosinophils 4.4 % (0.0-6.0); %Lymphocytes 14.2 % (18.0-47.0); %Monocytes 10.6 % (0.0-10.0); %Neutrophils 69.9 % (40.0-75.0); Hematocrit 26.6 % (34.9-44.5); Hemoglobin 8.4 g/dL (12.0-15.5); Mean Corpuscular HGB CONC 31.6 g/dL (32.0-36.0); Mean Corpuscular Hemoglobin 29.4 pg (27.0-33.0); Platelet Count 217 10x3/uL (150-450); RBC Distribution Width 13.7 % (11.5-14.5); Red Blood Cell (RBC) Count 2.86 10x6/uL (3.90-5.03); White Blood Cell (WBC) Count 6.4 10x3/uL (3.5-10.5)
[2023-10-08 10:25] LABS: Anion Gap 13 mmol/L (10-20); BUN (Urea Nitrogen) 12 mg/dL (9.8-20.1); Calc. Creatinine Clearance 50 mL/min (70-130); Carbon Dioxide 18 mmol/L (23-31); Chloride 114 mmol/L (98-107); Estimated GFR 70; Potassium 3.4 mmol/L (3.5-5.1); Sodium 142 mmol/L (136-145)
[2023-10-08 10:26] LABS: Calcium 9.1 mg/dL (7.6-10.4); Glucose 80 mg/dL (83-110)
[2023-10-10] MEDS: Ertapenem 1 GM in Sodium Chloride 0.9% 100 ML IVPB SCH (08:14)
[2023-10-10 12:18] VITALS: BP 128/62; TEMP 98.3
== END 2023-10-10 11:10 | DRG 871 ==
LOC: CSHERS 23:46 → CSHTELE 10-05 00:55
PROVIDERS: ADMIT Family Medicine; ATTEND Family Medicine
PROC: 3E03329 Introduction of Other Anti-infective into Peripheral Vein, Percutaneous Approach (ICD-10-PCS; 2023-10-05)
PROC: 02HV33Z Insertion of Infusion Device into Superior Vena Cava, Percutaneous Approach (ICD-10-PCS; principal; 2023-10-09)
PROC: B5181ZA Fluoroscopy of Superior Vena Cava using Low Osmolar Contrast, Guidance (ICD-10-PCS; 2023-10-09)
PROC: 3E04329 Introduction of Other Anti-infective into Central Vein, Percutaneous Approach (ICD-10-PCS; 2023-10-09)
PROC: B548ZZA Ultrasonography of Superior Vena Cava, Guidance (ICD-10-PCS; 2023-10-09)
DX: A41.4 Sepsis due to anaerobes (principal); J96.01 Acute respiratory failure with hypoxia; I51.81 Takotsubo syndrome; N39.0 Urinary tract infection, site not specified; N17.9 Acute kidney failure, unspecified; J44.9 Chronic obstructive pulmonary disease, unspecified; E03.9 Hypothyroidism, unspecified; I12.9 Hypertensive chronic kidney disease with stage 1 through stage 4 chronic kidney disease, or unspecified chronic kidney disease; I49.5 Sick sinus syndrome; N18.31 Chronic kidney disease, stage 3a; D63.1 Anemia in chronic kidney disease; K58.9 Irritable bowel syndrome, unspecified; Z96.643 Presence of artificial hip joint, bilateral; Z96.611 Presence of right artificial shoulder joint; Z96.612 Presence of left artificial shoulder joint; Z96.653 Presence of artificial knee joint, bilateral; I25.2 Old myocardial infarction; Z90.710 Acquired absence of both cervix and uterus; Z98.890 Other specified postprocedural states; Z87.448 Personal history of other diseases of urinary system; Z88.5 Allergy status to narcotic agent; Z88.8 Allergy status to other drugs, medicaments and biological substances; Z95.0 Presence of cardiac pacemaker
CPT/HCPCS: 36415; 36569; 71045; 76770; 76937; 77001; 80048; 80053; 80076; 80202; 81001; 83605; 83690; 83735; 84484; 85025; 87040; 87077; 87086; 87149; 87186; 93005; 94760; 94762; 96365; C1751; J0692; J1335; J1650; J1956; J2185; J2405; J3370; J3490; J7050

== ENCOUNTER 2023-10-19 22:29 | Emergency (ER) | payer MEDICARE, OTHER ==
[2023-10-19 23:28] LABS: #Basophils 0.08 10x3/uL (0.0-0.2); #Eosinphils 0.29 10x3/uL (0.0-0.5); #Monocytes 0.64 10x3/uL (0.0-1.1); %Basophils 0.9 % (0.0-2.0); %Eosinophils 3.4 % (0.0-6.0); %Lymphocytes 20.2 % (18.0-47.0); %Monocytes 7.5 % (0.0-10.0); %Neutrophils 67.6 % (40.0-75.0); Hemoglobin 11.7 g/dL (12.0-15.5); Mean Corpuscular HGB CONC 33.4 g/dL (32.0-36.0); Mean Corpuscular Hemoglobin 30.2 pg (27.0-33.0); Mean Corpuscular Volume 90.4 fL (81.6-98.3); Mean Platelet Volume 8.8 fL (7.4-10.4); Platelet Count 300 10x3/uL (150-450); RBC Distribution Width 12.9 % (11.5-14.5); Red Blood Cell (RBC) Count 3.87 10x6/uL (3.90-5.03); White Blood Cell (WBC) Count 8.6 10x3/uL (3.5-10.5)
[2023-10-19 23:40] LABS: ALT (SGPT) 12 U/L (8-55); AST (SGOT) 23 U/L (5-34); Albumin 3.6 g/dL (3.4-4.8); Alkaline Phosphatase 55 U/L (40-110); Anion Gap 16 mmol/L (10-20); BUN (Urea Nitrogen) 15 mg/dL (9.8-20.1); Bilirubin, Total 0.4 mg/dL (0.2-1.2); Calc. Creatinine Clearance 0 mL/min (70-130); Calcium 9.7 mg/dL (7.8-10.44); Carbon Dioxide 22 mmol/L (23-31); Chloride 105 mmol/L (98-107); Estimated GFR 52; Glucose 62 mg/dL (83-110); Potassium 4.7 mmol/L (3.5-5.1); Protein, Total 6.6 g/dL (5.8-8.1); Sodium 138 mmol/L (136-145)
[2023-10-19 23:49] LABS: Actual Bicarbonate (HCO3v) 21.4 mEq/L (22-28); Analyzer IN Cardio CS ER; Base Excess -1.7 mEq/L (-2 - +2); Calcium, Ionized (venous) 1.15 mmol/L (1.16-1.32); Chloride (VBG) 104 mmol/L (98-106); Critical Notified By: CP.PH; Hematocrit-VBG 35 % (36.0-47.0); Hemoglobin (Hb) 11.9 g/dL (11.7-16.1); Potassium (VBG) 4.42 mmol/L (3.70-5.30); Puncture Site Other Site; RapidComm Collect By CBN; Sodium 140 mmol/L (133-146); pH (venous) 7.456 (7.32-7.43)
[2023-10-20 02:30] LABS: Bilirubin Neg (Negative); Blood, Urine 250 (Negative); Clarity Cloudy (Clear); Glucose, Urine (Dipstick) Normal (Negative); Ketone, Urine Negative (Negative); Leukocyte 500 (Negative); Nitrite Positive (Negative); Protein, Urine (Dipstick) 15 mg/dl (Neg-Trace)
[2023-10-20 02:42] LABS: CAUTI Indications for Culture Alt mental st,lethar; WBC/HPF 21-50 HPF (0-3)
[2023-10-20 02:44] LABS: Bacteria/HPF 2+ HPF (None Seen); Transitional Epithelial 0-3 HPF (None Seen)
[2023-10-20 02:46] LABS: Urine Culture Reflex Yes Yes
== END 2023-10-20 04:48 | disposition home or self-care (01) ==
LOC: CSHERS 22:29
DX: N39.0 Urinary tract infection, site not specified (principal); I13.0 Hypertensive heart and chronic kidney disease with heart failure and stage 1 through stage 4 chronic kidney disease, or unspecified chronic kidney disease; N18.9 Chronic kidney disease, unspecified; I50.9 Heart failure, unspecified; I48.91 Unspecified atrial fibrillation; E03.9 Hypothyroidism, unspecified; I25.10 Atherosclerotic heart disease of native coronary artery without angina pectoris; I25.2 Old myocardial infarction; J44.9 Chronic obstructive pulmonary disease, unspecified; Z79.899 Other long term (current) drug therapy
CPT/HCPCS: 71045; 80053; 81001; 82140; 82805; 83605; 85025; 87086

== ENCOUNTER 2025-01-15 22:35 | Inpatient (IN) | payer MEDICARE, OTHER ==
[2025-01-15 23:41] LABS: Glucose, Urine (Dipstick) Negative (Negative); Leukocyte Moderate (Negative); Protein, Urine (Dipstick) 100 mg/dL (Neg-Trace); Specific Gravity, Urine 1.010 (1.005-1.030)
[2025-01-15 23:45] LABS: #Basophils 0.03 10x3/uL (0.0-0.2); #Eosinophils Less than 0.03 10x3/uL (0.0-0.5); #Monocytes 1.34 10x3/uL (0.0-1.1); #Neutrophils 10.85 10x3/uL (1.5-8.4); %Basophils 0.2 % (0.0-2.0); %Eosinophils 0.1 % (0.0-6.0); %Lymphocytes 4.9 % (18.0-47.0); %Monocytes 10.3 % (0.0-10.0); %Neutrophils 83.9 % (40.0-75.0); Hematocrit 34.5 % (34.9-44.5); Hemoglobin 10.6 g/dL (12.0-15.5); Mean Corpuscular Hemoglobin 29.5 pg (27.0-33.0); Mean Corpuscular Volume 96.1 fL (81.6-98.3); Platelet Count 153 10x3/uL (150-450); Red Blood Cell (RBC) Count 3.59 10x6/uL (3.90-5.03); White Blood Cell (WBC) Count 12.95 10x3/uL (3.5-10.5)
[2025-01-15 23:48] LABS: CAUTI Indications for Culture Fever or rigors; WBC/HPF Greater than 50 HPF (0-3)
[2025-01-15 23:49] LABS: Bacteria/HPF 1+ HPF (None Seen)
[2025-01-15 23:50] LABS: Urine Culture Reflex Yes Yes
[2025-01-15 23:58] LABS: ALT (SGPT) 7 U/L (Less than 34); AST (SGOT) 14 U/L (11-34); Albumin 3.6 g/dL (3.1-4.5); Alkaline Phosphatase 55 U/L (40-110); Anion Gap 14 mmol/L (10-20); BUN (Urea Nitrogen) 29 mg/dL (9.8-20.1); Bilirubin, Total 0.9 mg/dL (0.3-1.2); Calc. Creatinine Clearance 0 mL/min (70-130); Calcium 9.2 mg/dL (7.8-10.44); Carbon Dioxide 18 mmol/L (23-31); Chloride 111 mmol/L (98-107); Globulin 3.3 g/dL (2.4-3.5); Glucose 106 mg/dL (83-110); Potassium 4.4 mmol/L (3.5-5.1); Sodium 139 mmol/L (136-145)
[2025-01-16] MEDS ORDERED: LevoFLOXacin 750 mg/D5W 150 ml Premix Bag ONE (01:25)
[2025-01-16] MEDS ORDERED: Calcium Carbonate 500 MG ChewTAB PO PRN (02:48)
[2025-01-16] MEDS ORDERED: Senokot S 8.6-50 MG TAB PO PRN (02:48)
[2025-01-16] MEDS ORDERED: Benzonatate 100 MG CAP PO PRN (03:01)
[2025-01-16 03:26] LABS: Troponin I 0.025 ng/mL (< 0.028)
[2025-01-16 03:51] VITALS: BMI 29.9
[2025-01-16] MEDS: Ketorolac Tromethamine 30 MG (1 mL) VIAL IVP SCH (04:32)
[2025-01-16 05:47] LABS: #Basophils 0.03 10x3/uL (0.0-0.2); #Eosinophils 0.09 10x3/uL (0.0-0.5); #Monocytes 1.19 10x3/uL (0.0-1.1); #Neutrophils 10.65 10x3/uL (1.5-8.4); %Basophils 0.2 % (0.0-2.0); %Eosinophils 0.7 % (0.0-6.0); %Lymphocytes 6.2 % (18.0-47.0); %Monocytes 9.3 % (0.0-10.0); %Neutrophils 83.1 % (40.0-75.0); Hematocrit 33.2 % (34.9-44.5); Hemoglobin 10.1 g/dL (12.0-15.5); Mean Corpuscular Hemoglobin 29.3 pg (27.0-33.0); Mean Corpuscular Volume 96.2 fL (81.6-98.3); Platelet Count 151 10x3/uL (150-450); Red Blood Cell (RBC) Count 3.45 10x6/uL (3.90-5.03); White Blood Cell (WBC) Count 12.82 10x3/uL (3.5-10.5)
[2025-01-16 06:00] LABS: Vancomycin, Random 14.2 ug/mL (See Comment)
[2025-01-16 06:03] LABS: Anion Gap 15 mmol/L (10-20); BUN (Urea Nitrogen) 30 mg/dL (9.8-20.1); Calc. Creatinine Clearance 34 mL/min (70-130); Calcium 9.0 mg/dL (7.8-10.44); Carbon Dioxide 17 mmol/L (23-31); Chloride 113 mmol/L (98-107); Glucose 97 mg/dL (83-110); Potassium 4.6 mmol/L (3.5-5.1); Sodium 140 mmol/L (136-145)
[2025-01-16] MEDS: Mometasone 200 MCG/Formoterol 5 MCG 60 PUFF INHALER INH SCH (06:55)
[2025-01-16] MEDS ORDERED: Polyvinyl Alcohol 1.4%/Povidone 0.6% Opth Drops EA EYE PRN (06:59)
[2025-01-16] MEDS ORDERED: Metamucil PACK PO SCH (09:00)
[2025-01-16] MEDS: Cholecalciferol 1,000 UNITS (25 MCG) TAB PO SCH (09:42)
[2025-01-16] MEDS: Magnesium Oxide 400 MG TAB PO SCH (09:42)
[2025-01-16] MEDS: Carvedilol 3.125 MG TAB PO SCH (09:42)
[2025-01-16] MEDS: BuPROPion XL 150 MG ER.TAB PO SCH (09:42)
[2025-01-16] MEDS: Pantoprazole 40 MG DR.TAB PO SCH (09:43)
[2025-01-16] MEDS: Gabapentin 300 MG CAP PO SCH (09:43)
[2025-01-16] MEDS: Sodium Bicarbonate Tab 325 MG TAB PO SCH (09:43)
[2025-01-16] MEDS: Vancomycin 1 GM in Sodium Chloride 0.9% 250 ML 250 ML IVPB SCH (09:44)
[2025-01-16] MEDS: Enoxaparin 40 MG (0.4 mL) SYRINGE SC SCH (09:44)
[2025-01-16] MEDS: Folic Acid/Vit B Comp W-C PO SCH (09:51)
[2025-01-16] MEDS: Ondansetron PF 4 MG/2 ML Vial IVP PRN (16:56)
[2025-01-16] MEDS: Acetaminophen 325 MG TAB PO PRN (16:58)
[2025-01-16] MEDS: Rosuvastatin 10 MG TAB PO SCH (20:48)
[2025-01-17 07:45] LABS: Vancomycin, Random 16.8 ug/mL (See Comment)
[2025-01-17] MEDS: Vancomycin HCl 750 MG in Sodium Chloride 0.9% 250 ML 250 ML IVPB SCH (09:25)
[2025-01-18 09:41] LABS: #Basophils Less than 0.03 10x3/uL (0.0-0.2); #Eosinophils 0.20 10x3/uL (0.0-0.5); #Monocytes 0.86 10x3/uL (0.0-1.1); #Neutrophils 5.38 10x3/uL (1.5-8.4); %Basophils 0.3 % (0.0-2.0); %Eosinophils 2.6 % (0.0-6.0); %Lymphocytes 14.3 % (18.0-47.0); %Monocytes 11.4 % (0.0-10.0); %Neutrophils 71.0 % (40.0-75.0); Hematocrit 33.8 % (34.9-44.5); Hemoglobin 10.3 g/dL (12.0-15.5); Mean Corpuscular Hemoglobin 29.7 pg (27.0-33.0); Mean Corpuscular Volume 97.4 fL (81.6-98.3); Platelet Count 167 10x3/uL (150-450); Red Blood Cell (RBC) Count 3.47 10x6/uL (3.90-5.03); White Blood Cell (WBC) Count 7.57 10x3/uL (3.5-10.5)
[2025-01-18 09:56] LABS: Anion Gap 15 mmol/L (10-20); BUN (Urea Nitrogen) 21 mg/dL (9.8-20.1); Calc. Creatinine Clearance 45 mL/min (70-130); Calcium 9.3 mg/dL (7.8-10.44); Carbon Dioxide 19 mmol/L (23-31); Chloride 113 mmol/L (98-107); Glucose 103 mg/dL (83-110); Potassium 4.0 mmol/L (3.5-5.1); Sodium 143 mmol/L (136-145)
[2025-01-18] MEDS: Bisacodyl 10 MG SUPP PR SCH (13:08)
[2025-01-18] MEDS: Lisinopril 10 MG TAB PO SCH (15:37)
[2025-01-18] MEDS: Senokot S 8.6-50 MG TAB PO SCH (20:57)
[2025-01-19 07:15] LABS: %Neutrophils 83.2 % (40.0-75.0); Hematocrit 33.4 % (34.9-44.5); Hemoglobin 10.7 g/dL (12.0-15.5); Mean Corpuscular Hemoglobin 29.8 pg (27.0-33.0); Mean Corpuscular Volume 93.0 fL (81.6-98.3); Platelet Count 131 10x3/uL (150-450); Red Blood Cell (RBC) Count 3.59 10x6/uL (3.90-5.03); White Blood Cell (WBC) Count 12.80 10x3/uL (3.5-10.5)
[2025-01-19 07:16] LABS: #Basophils Less than 0.03 10x3/uL (0.0-0.2); #Eosinophils 0.15 10x3/uL (0.0-0.5); #Monocytes 1.03 10x3/uL (0.0-1.1); #Neutrophils 10.66 10x3/uL (1.5-8.4); %Basophils 0.2 % (0.0-2.0); %Eosinophils 1.2 % (0.0-6.0); %Lymphocytes 7.0 % (18.0-47.0); %Monocytes 8.0 % (0.0-10.0)
[2025-01-19 07:29] LABS: Vancomycin, Random 16.2 ug/mL (See Comment)
[2025-01-19 07:33] LABS: Anion Gap 17 mmol/L (10-20); BUN (Urea Nitrogen) 18 mg/dL (9.8-20.1); Calc. Creatinine Clearance 49 mL/min (70-130); Calcium 8.9 mg/dL (7.8-10.44); Carbon Dioxide 23 mmol/L (23-31); Chloride 108 mmol/L (98-107); Glucose 101 mg/dL (83-110); Potassium 4.5 mmol/L (3.5-5.1); Sodium 143 mmol/L (136-145)
[2025-01-19] MEDS: Lisinopril 10 MG TAB PO SCH (08:41)
[2025-01-19] MEDS: Vancomycin 1 GM in Sodium Chloride 0.9% 250 ML 250 ML IVPB SCH (08:46)
[2025-01-19] MEDS: cefTRIAXone\\ROCEPHIN 2 GM in Sodium Chloride 0.9% 100 ML IVPB SCH (11:34)
[2025-01-19 14:09] LABS: Actual Bicarbonate (HCO3v) 25.1 mEq/L (22-28); Analyzer IN Cardio CS ER; Base Excess 1.4 mEq/L (-2 - +2); Calcium, Ionized (venous) 1.14 mmol/L (1.16-1.32); Chloride (VBG) 106 mmol/L (98-106); Critical Notified By: Udy, RRT; Hematocrit-VBG 31 % (36.0-47.0); Hemoglobin (Hb) 10.4 g/dL (11.7-16.1); Potassium (VBG) 3.54 mmol/L (3.70-5.30); Puncture Site Other Site; RapidComm Collect By LAB.CB1; Sodium 141 mmol/L (133-146)
[2025-01-19 15:18] LABS: Glucose, Urine (Dipstick) Normal (Negative); Leukocyte 500 (Negative); Protein, Urine (Dipstick) 30 mg/dl (Neg-Trace); Specific Gravity, Urine 1.010 (1.005-1.030)
[2025-01-19 16:30] LABS: Bacteria/HPF 3+ HPF (None Seen); CAUTI Indications for Culture Fever or rigors; Urine Culture Reflex No No; WBC/HPF 0-3 HPF (0-3)
[2025-01-20 05:30] LABS: #Basophils 0.04 10x3/uL (0.0-0.2); #Eosinophils 0.32 10x3/uL (0.0-0.5); #Monocytes 0.74 10x3/uL (0.0-1.1); #Neutrophils 5.28 10x3/uL (1.5-8.4); %Basophils 0.5 % (0.0-2.0); %Eosinophils 4.0 % (0.0-6.0); %Lymphocytes 19.3 % (18.0-47.0); %Monocytes 9.3 % (0.0-10.0); %Neutrophils 66.4 % (40.0-75.0); Hematocrit 27.7 % (34.9-44.5); Hemoglobin 8.7 g/dL (12.0-15.5); Mean Corpuscular Hemoglobin 29.6 pg (27.0-33.0); Mean Corpuscular Volume 94.2 fL (81.6-98.3); Platelet Count 194 10x3/uL (150-450); Red Blood Cell (RBC) Count 2.94 10x6/uL (3.90-5.03); White Blood Cell (WBC) Count 7.96 10x3/uL (3.5-10.5)
[2025-01-20 05:48] LABS: Anion Gap 10 mmol/L (10-20); BUN (Urea Nitrogen) 21 mg/dL (9.8-20.1); Calc. Creatinine Clearance 48 mL/min (70-130); Calcium 8.5 mg/dL (7.8-10.44); Carbon Dioxide 24 mmol/L (23-31); Chloride 111 mmol/L (98-107); Glucose 86 mg/dL (83-110); Potassium 3.3 mmol/L (3.5-5.1); Sodium 142 mmol/L (136-145)
[2025-01-21 05:45] LABS: Hematocrit 28.7 % (34.9-44.5); Hemoglobin 9.0 g/dL (12.0-15.5); Mean Corpuscular Hemoglobin 29.8 pg (27.0-33.0); Mean Corpuscular Volume 95.0 fL (81.6-98.3); Platelet Count 115 10x3/uL (150-450); Red Blood Cell (RBC) Count 3.02 10x6/uL (3.90-5.03); White Blood Cell (WBC) Count 8.36 10x3/uL (3.5-10.5)
[2025-01-21 05:47] LABS: MDiff Complete? YES; Platelet Adequacy Comment Appears Decreased; RBC Morphology Within Normal Limits
[2025-01-21 09:56] LABS: Anion Gap 11 mmol/L (10-20); BUN (Urea Nitrogen) 19 mg/dL (9.8-20.1); Calc. Creatinine Clearance 52 mL/min (70-130); Calcium 8.4 mg/dL (7.8-10.44); Carbon Dioxide 21 mmol/L (23-31); Chloride 112 mmol/L (98-107); Glucose 83 mg/dL (83-110); Potassium 3.3 mmol/L (3.5-5.1); Sodium 141 mmol/L (136-145)
[2025-01-22 05:35] LABS: #Basophils 0.05 10x3/uL (0.0-0.2); #Eosinophils 0.29 10x3/uL (0.0-0.5); #Monocytes 0.96 10x3/uL (0.0-1.1); #Neutrophils 8.24 10x3/uL (1.5-8.4); %Basophils 0.4 % (0.0-2.0); %Eosinophils 2.6 % (0.0-6.0); %Lymphocytes 14.1 % (18.0-47.0); %Monocytes 8.5 % (0.0-10.0); %Neutrophils 73.3 % (40.0-75.0); Hematocrit 28.3 % (34.9-44.5); Hemoglobin 9.3 g/dL (12.0-15.5); Mean Corpuscular Hemoglobin 30.5 pg (27.0-33.0); Mean Corpuscular Volume 92.8 fL (81.6-98.3); Platelet Count 237 10x3/uL (150-450); Red Blood Cell (RBC) Count 3.05 10x6/uL (3.90-5.03); White Blood Cell (WBC) Count 11.24 10x3/uL (3.5-10.5)
[2025-01-22 05:56] LABS: Anion Gap 12 mmol/L (10-20); BUN (Urea Nitrogen) 13 mg/dL (9.8-20.1); Calc. Creatinine Clearance 55 mL/min (70-130); Calcium 8.5 mg/dL (7.8-10.44); Carbon Dioxide 21 mmol/L (23-31); Chloride 113 mmol/L (98-107); Glucose 89 mg/dL (83-110); Potassium 3.3 mmol/L (3.5-5.1); Sodium 143 mmol/L (136-145)
[2025-01-22 12:37] VITALS: BP 143/64; TEMP 97.8
== END 2025-01-22 15:35 | disposition home or self-care (01) | DRG 871 ==
LOC: CSHERS 22:35 → CSHTELE 01-16 02:48
PROVIDERS: ADMIT Student in an Organized Health Care Education/Training Program; ATTEND Family Medicine
DX: A41.59 Other Gram-negative sepsis (principal); G93.41 Metabolic encephalopathy; I51.81 Takotsubo syndrome; F03.93 Unspecified dementia, unspecified severity, with mood disturbance; F03.94 Unspecified dementia, unspecified severity, with anxiety; I13.0 Hypertensive heart and chronic kidney disease with heart failure and stage 1 through stage 4 chronic kidney disease, or unspecified chronic kidney disease; N39.0 Urinary tract infection, site not specified; N17.9 Acute kidney failure, unspecified; N12 Tubulo-interstitial nephritis, not specified as acute or chronic; I50.22 Chronic systolic (congestive) heart failure; R65.20 Severe sepsis without septic shock; I48.91 Unspecified atrial fibrillation; E03.9 Hypothyroidism, unspecified; E78.5 Hyperlipidemia, unspecified; F03.90 Unspecified dementia, unspecified severity, without behavioral disturbance, psychotic disturbance, mood disturbance, and anxiety; K21.9 Gastro-esophageal reflux disease without esophagitis; K58.0 Irritable bowel syndrome with diarrhea; M19.90 Unspecified osteoarthritis, unspecified site; K59.00 Constipation, unspecified; N18.30 Chronic kidney disease, stage 3 unspecified; I25.10 Atherosclerotic heart disease of native coronary artery without angina pectoris; D63.1 Anemia in chronic kidney disease; D50.9 Iron deficiency anemia, unspecified; J44.9 Chronic obstructive pulmonary disease, unspecified; Z96.643 Presence of artificial hip joint, bilateral; Z96.653 Presence of artificial knee joint, bilateral; Z96.611 Presence of right artificial shoulder joint; E87.8 Other disorders of electrolyte and fluid balance, not elsewhere classified; F10.90 Alcohol use, unspecified, uncomplicated; Z96.612 Presence of left artificial shoulder joint; Z87.440 Personal history of urinary (tract) infections; Z98.890 Other specified postprocedural states; Z90.49 Acquired absence of other specified parts of digestive tract; Z90.710 Acquired absence of both cervix and uterus; Z95.0 Presence of cardiac pacemaker; Z91.048 Other nonmedicinal substance allergy status; Z88.8 Allergy status to other drugs, medicaments and biological substances; Z88.5 Allergy status to narcotic agent; Z88.0 Allergy status to penicillin; Z91.018 Allergy to other foods; Z88.2 Allergy status to sulfonamides; I25.2 Old myocardial infarction
CPT/HCPCS: 36415; 36416; 51701; 71045; 74018; 74176; 80048; 80053; 80202; 81001; 82805; 83605; 83880; 84145; 84484; 85025; 86140; 87040; 87086; 93005; 94664; 94760; 94762; 96374; J0696; J1650; J1885; J1956; J2185; J3373; J7030; J7050; J7070; J7120